=== PATIENT | female | born 1945 | race Caucasian/White ===

== ENCOUNTER 2020-12-22 11:24 | Inpatient (IN) | payer MEDICARE ==
[~2020-12-22] VITALS: Ht 162.6 cm; Wt 44.2 kg
[2020-12-22] MEDS ORDERED: normal saline 1000ml 1,000 ML IV ONE (12:35)
[2020-12-22 12:36] LABS: BASOPHILS # (AUTO) 0.1 X10'3 (0-0.2); BASOPHILS % (AUTO) 0.4 % (0-1); EOSINOPHILS # (AUTO) 0.1 X10'3 (0-0.9); EOSINOPHILS % (AUTO) 0.5 % (0-6); HEMATOCRIT 24.6 % (35.0-45.0); HEMOGLOBIN 7.7 g/dl (12.0-16.0); LYMPHOCYTES % (AUTO) 6.3 % (21-51); MEAN CORPUSCULAR HEMOGLOBIN 24.2 PG (27.0-31.0); MEAN CORPUSCULAR HGB CONC 31.4 g/dL (33.0-36.5); MEAN CORPUSCULAR VOLUME 77.1 FL (78-98); MEAN PLATELET VOLUME 6.3 FL (7.4-10.4); MONOCYTES # (AUTO) 1.8 X10'3 (0-0.9); MONOCYTES % (AUTO) 11.6 % (2-12); NEUTROPHILS # (AUTO) 12.3 X10'3 (1.8-7.7); NEUTROPHILS % (AUTO) 81.2 % (42-75); PLATELET COUNT 589 X10'3 (140-440); RED BLOOD COUNT 3.19 X10'6 (4.20-5.60); RED CELL DISTRIBUTION WIDTH 17.3 % (11.5-14.5); WHITE BLOOD COUNT 15.1 X10'3 (4.5-11.0)
[2020-12-22 12:49] LABS: ALANINE AMINOTRANSFERASE 19 U/L (12-78); ALBUMIN 2.4 G/DL (3.4-5.0); ALBUMIN/GLOBULIN RATIO 0.5 (1.1-1.5); ALKALINE PHOSPHATASE 56 IU/L (46-116); ANION GAP 10 (8-16); ASPARTATE AMINO TRANSFERASE 13 U/L (10-37); BILIRUBIN,TOTAL 0.2 MG/DL (0.1-1.0); BLOOD UREA NITROGEN 14 MG/DL (7-18); CALCIUM 8.6 MG/DL (8.5-10.1); CHLORIDE 99 MMOL/L (99-107); CREATININE 0.61 MG/DL (0.40-0.90); GLUCOSE 122 MG/DL (70-104); LIPASE < 50 U/L (73-393); POTASSIUM 3.8 MMOL/L (3.5-5.1); SODIUM 136 MMOL/L (135-145); TOTAL CARBON DIOXIDE 27.3 MMOL/L (24-32); TOTAL PROTEIN 7.3 G/DL (6.4-8.2); eGFR > 90 ML/MIN
[2020-12-22] MEDS ORDERED: iohexol 300mg/ml 100ml inj. ONE (13:22)
[2020-12-22 14:41] LABS: CLARITY,URINE CLOUDY (Clear); COLOR,URINE YELLOW (Yellow); GLUCOSE, URINE NEGATIVE (Neg); KETONES,URINE NEGATIVE (Neg); LEUKOCYTE ESTERASE ,URINE MODERATE (Neg); NITRITES, URINE POSITIVE (Neg); OCCULT BLOOD,URINE MODERATE (Neg); PROTEIN,URINE NEGATIVE (Neg); UA COLLECTION TYPE CLN CATCH MIDSTREAM; UROBILINOGEN,URINE 0.2 E.U/dL (0.2-1.0)
[2020-12-22 14:50] LABS: WBC,URINE TNTC /HPF (0-4)
[2020-12-22 14:51] LABS: BACTERIA,URINE 4+ /HPF (Neg); MUCUS STRANDS NONE SEEN /LPF (Neg); SQUAMOUS EPITHELIAL CELL,UR FEW /LPF (FEW); WBC CLUMPS,URINE MODERATE /HPF (NEGATIVE)
[2020-12-22] MEDS ORDERED: heparin 10,000 units/1 ML INJ IV ONE ×2 (16:10→16:20)
[2020-12-22] MEDS ORDERED: BALS750C PO (16:43)
[2020-12-22] MEDS ORDERED: METF-1203 PO (16:43)
[2020-12-22] MEDS ORDERED: FINA1TAB17 PO (16:43)
[2020-12-22] MEDS ORDERED: PRE5T PO (16:43)
[2020-12-22] MEDS ORDERED: FERR325T29 PO (16:43)
[2020-12-22] MEDS ORDERED: LACT1CAP65 PO (16:51)
[2020-12-22] MEDS: heparin 25,000 UNIT/250ml bag 250 ML IV SCH (17:01)
[2020-12-22] MEDS ORDERED: diphenhydrAMINE 25mg capsule PO PRN (17:20)
[2020-12-22] MEDS ORDERED: diphenhydrAMINE 50 mg/ml inj IV PRN (17:20)
[2020-12-22] MEDS ORDERED: magnesium hydroxide 30ml (MOM) UD suspension PO PRN (17:20)
[2020-12-22] MEDS ORDERED: ondansetron 4mg rapidly disintigrating tab PO PRN (17:20)
[2020-12-22] MEDS ORDERED: bisacodyl 10mg suppository rectal RC PRN (17:20)
[2020-12-22] MEDS ORDERED: heparin 10,000 units/1 ML INJ IV PRN (17:25)
[2020-12-22] MEDS ORDERED: heparin 25,000 UNIT/250ml bag 250 ML IV SCH (17:25)
[2020-12-22] MEDS ORDERED: pantoprazole 40 MG vial IV ONE (17:25)
[2020-12-22 17:54] LABS: HEMOGLOBIN A1C 7.1 % (4.5-6.2)
[2020-12-22 18:06] LABS: CREATINE KINASE 27 U/L (26-192); MAGNESIUM 2.2 MG/DL (1.5-2.4); PHOSPHORUS 3.1 MG/DL (2.3-4.5)
[2020-12-22] MEDS: docusate sod 100mg capsule PO SCH (20:00)
[2020-12-22] MEDS: dextrose 5%-1/2 normal saline 1,000 ML IV SCH (20:22)
[2020-12-22] MEDS ORDERED: CLINDAMYCIN 300mg/NS 50ml IVPB 50 ML IV SCH (21:50)
[2020-12-22] MEDS ORDERED: clindamycin 300mg/D5W 50mL 50 ML IV SCH (21:54)
[2020-12-23] VITALS: BP 112/49
--- NOTE | 2020-12-23 00:43 | NUR ---
PT IS RESTING COMFORTABLY. EQUAL RISE AND FALL OF CHEST.
[2020-12-23] MEDS: heparin 10,000 units/1 ML INJ IV PRN ×2 (01:44→10:21)
[2020-12-23] MEDS: dextrose 5%-1/2 normal saline 1,000 ML IV SCH ×2 (03:20→13:20)
[2020-12-23 03:27] LABS: BASOPHILS # (AUTO) 0.1 X10'3 (0-0.2); BASOPHILS % (AUTO) 0.7 % (0-1); EOSINOPHILS # (AUTO) 0.1 X10'3 (0-0.9); HEMATOCRIT 22.3 % (35.0-45.0); HEMOGLOBIN 7.2 g/dl (12.0-16.0); LYMPHOCYTES # (AUTO) 1.9 X10'3 (1.1-4.8); LYMPHOCYTES % (AUTO) 13.5 % (21-51); MEAN CORPUSCULAR HGB CONC 32.1 g/dL (33.0-36.5); MEAN CORPUSCULAR VOLUME 77.9 FL (78-98); MEAN PLATELET VOLUME 7.1 FL (7.4-10.4); MONOCYTES # (AUTO) 1.7 X10'3 (0-0.9); MONOCYTES % (AUTO) 12.4 % (2-12); NEUTROPHILS # (AUTO) 9.9 X10'3 (1.8-7.7); NEUTROPHILS % (AUTO) 72.4 % (42-75); PLATELET COUNT 501 X10'3 (140-440); RED BLOOD COUNT 2.86 X10'6 (4.20-5.60); RED CELL DISTRIBUTION WIDTH 17.3 % (11.5-14.5); WHITE BLOOD COUNT 13.7 X10'3 (4.5-11.0)
[2020-12-23 03:43] LABS: ALANINE AMINOTRANSFERASE 16 U/L (12-78); ALBUMIN/GLOBULIN RATIO 0.5 (1.1-1.5); ALKALINE PHOSPHATASE 49 IU/L (46-116); ANION GAP 13 (8-16); ASPARTATE AMINO TRANSFERASE 16 U/L (10-37); BILIRUBIN,TOTAL 0.2 MG/DL (0.1-1.0); BLOOD UREA NITROGEN 10 MG/DL (7-18); BUN/CREATININE RATIO 17.2 (6.6-38.0); CALCIUM 8.1 MG/DL (8.5-10.1); CHLORIDE 101 MMOL/L (99-107); CHOL/HDL RATIO 2.3 (0.00-4.99); CHOLESTEROL 119 MG/DL (0-200); CREATININE 0.58 MG/DL (0.40-0.90); GLUCOSE 114 MG/DL (70-104); HDL CHOLESTEROL 52 MG/DL (35-60); LDL CHOLESTEROL 60 MG/DL (50-100); POTASSIUM 3.6 MMOL/L (3.5-5.1); SODIUM 136 MMOL/L (135-145); TOTAL CARBON DIOXIDE 22.4 MMOL/L (24-32); TOTAL PROTEIN 6.4 G/DL (6.4-8.2); TRIGLYCERIDES 49 MG/DL (20-135); eGFR > 90 ML/MIN
[2020-12-23 06:17] LABS: ANISOCYTOSIS 1+; HYPOCHROMASIA 1+; MICROCYTOSIS 1+; PLATELET ESTIMATE INCREASED; TOTAL CELLS COUNTED 100
[2020-12-23 06:18] LABS: BURR CELLS FEW; POLYCHROMASIA FEW; ROULEAUX 1+; TEAR DROP CELLS FEW
[2020-12-23 06:30] VITALS: BP 107/53
--- NOTE | 2020-12-23 07:00 | NUR ---
Patient in room PCU 3014. I have received report from TANNER Newsome and had the opportunity to ask questions and assume patient care.
[2020-12-23] MEDS: docusate sod 100mg capsule PO SCH ×2 (08:00→20:00)
[2020-12-23] MEDS ORDERED: potassium Cl 40MEQ/1/2NS 520ml 520 ML IV PRN (09:20)
[2020-12-23] MEDS ORDERED: magnesium Cl slow-release 64mg tablet PO PRN (09:20)
[2020-12-23] MEDS ORDERED: potassium Cl 20 mEq SR tablet PO PRN ×2 (09:20)
[2020-12-23] MEDS ORDERED: magnesium 4gm in 100ml NS 100 ML IV PRN (09:20)
[2020-12-23] MEDS: ferrous sulfate 325mg tablet PO SCH (10:11)
[2020-12-23] MEDS: prednisone 10mg tablet PO SCH (10:11)
[2020-12-23] MEDS: ciprofloxacin lact 400MG/200ML 200 ML IV SCH ×2 (10:12→21:51)
[2020-12-23] MEDS: FINASTERIDE 1 MG PO SCH (10:19)
[2020-12-23] MEDS: heparin 25,000 UNIT/250ml bag 250 ML IV SCH ×2 (10:24→13:17)
[2020-12-23] MEDS: metroNIDAZOLE 500mg tablet PO SCH ×3 (10:28→20:46)
[2020-12-23 11:00] VITALS: BP 118/58
[2020-12-23] MEDS ORDERED: iohexol 350MG/ML 100ml bottle IV ONE (12:12)
[2020-12-23 12:24] LABS: OCCULT BLOOD STOOL NEGATIVE (Neg)
[2020-12-23] MEDS: nystatin 500,000 unit/5ML UD oral suspension PO SCH ×2 (13:03→20:46)
--- NOTE | 2020-12-23 14:17 | NUR ---
Nutrition consult re: "gluten free". Pt already on a gluten free diet per dietary. Noted pt with A1c 7.1% with no PMH of DM in EMR though per MD documentation pt with Metformin on home med list. Likely pt with known h/o DM which is well controlled for age. DM education not warranted at this time. Will continue to follow. Addendum: 12/23/20 at [address] Amended: Links added.
[2020-12-23 15:00] VITALS: BP 116/77
[2020-12-23] MEDS ORDERED: metroNIDAZOLE-Flagyl 500mg/NS 100 ML IV SCH (16:00)
--- NOTE | 2020-12-23 16:57 | NUR ---
Nutrition/PN consults re: "severe protein calorie malnutrition needing surgery". Pt denies wt loss or decreased appetite per malnutrition risk screen with RN. Noted TPN ordered in EMR. Pt on a gluten free diet documented with average 75% PO intake of meals though 75-100% PO intake of protein, PN not indicated at this time as pt meeting estimated nutrient needs. 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 okays pt receiving PPN over the weekend as pt with no central/PICC access at this time. agrees for pt to receive ONS and for pt be placed on low fiber diet as long as it does not impact patient's PO intake. Conversation with MD was d/w patient's bedside RN. TC to pharmacy who reports clinical pharmacist is out for the night so PPN can't start until tomorrow, RN notified. D/w RN recommendation to discontinue dextrose with MD approval once PN is initiated. PPN and TPN recommendations below are calculated to meet 100% of patient's minimum estimated protein needs though not estimated energy needs as pt will continue with a PO diet and is eating well thus far. Estimated nutrient needs were calculated using IBW as current documented wt isn't scaled. LBM 12/23, documented with diarrhea. Will continue to follow closely. Recommendations: 1) Continue low fiber/gluten free diet; liberalize to regular diet IF PO intake declines and/or diarrhea improves 2) Ensure High Protein BIDBD 3) Continuous PPN per MD using 2:1 Clinimix-E 4.25/10 with 55 mL/hr goal rate to provide 1320 mL total volume/day, 56 g protein, and 132 g dextrose (1.74 mg/kg/min dext load) 4) Once TPN, continuous TPN per MD using 2:1 Clinimix-E 5/20 with 45 mL/hr goal rate to provide 1080 mL total volume/day, 54 g protein, and 216 g dextrose (2.84 mg/kd/min dext load) 5) No lipids with PN given pt with a PO diet 6) Prealbumin and TG q Saturday/ 7) Daily scaled weights 8) Bowel care per MD; consider antidiarrheal Addendum: 12/23/20 at [address] Amended: Links added.
[2020-12-23] MEDS: lactose-reduced food (Ensure High Protein) 237ml bottle PO SCH (17:53)
[2020-12-23 17:59] LABS: PREALBUMIN 9.6 MG/DL (19-36)
[2020-12-23 18:00] VITALS: BP 109/51
--- NOTE | 2020-12-23 18:10 | NUR ---
Problems reprioritized. Patient report given, questions answered & plan of care reviewed with TANNER Roe.
--- NOTE | 2020-12-23 18:30 | NUR ---
Patient in room PCU 3014A. I have received report from TANNER Penaloza and had the opportunity to ask questions and assume patient care. Introduced myself to patient, patient laying in bed with no signs of distress. Bed lower and locked, call light within reach, and side rails up. Will continue to monitor
[2020-12-23] MEDS: K and/or MAG REPLACEMENT MC SCH (18:52)
[2020-12-23] MEDS ORDERED: lactobacillus rhamnosus 10,000 MMU CELLS/CAPSULE PO SCH (20:00)
--- NOTE | 2020-12-23 21:21 | NUR ---
notified pharmacy that cipro was not available in either omni, in the bins or in either refrigerator.
[2020-12-23 22:00] VITALS: BP 104/52
[2020-12-24 02:00] VITALS: BP 107/54
[2020-12-24] MEDS: heparin 10,000 units/1 ML INJ IV PRN (02:23)
[2020-12-24] MEDS: dextrose 5%-1/2 normal saline 1,000 ML IV SCH ×3 (02:54→19:20)
--- NOTE | 2020-12-24 03:36 | NUR ---
reviewed and edited SRN assessment
[2020-12-24 06:00] VITALS: BP 127/64
--- NOTE | 2020-12-24 06:17 | NUR ---
Problems reprioritized. Patient report given, questions answered & plan of care reviewed with TANNER Corey.
--- NOTE | 2020-12-24 06:18 | NUR ---
Patient in room PCU 3014. I have received report from TANNER Roe and had the opportunity to ask questions and assume patient care.
[2020-12-24] MEDS: heparin 25,000 UNIT/250ml bag 250 ML IV SCH (07:00)
[2020-12-24] MEDS: lactose-reduced food (Ensure High Protein) 237ml bottle PO SCH ×2 (07:30→10:41)
[2020-12-24] MEDS: K and/or MAG REPLACEMENT MC SCH ×2 (08:00→22:04)
[2020-12-24] MEDS: docusate sod 100mg capsule PO SCH ×2 (08:00→20:00)
[2020-12-24] MEDS: FINASTERIDE 1 MG PO SCH (08:00)
[2020-12-24] MEDS: ciprofloxacin lact 400MG/200ML 200 ML IV SCH ×2 (08:43→20:17)
[2020-12-24] MEDS: nystatin 500,000 unit/5ML UD oral suspension PO SCH ×3 (08:43→20:19)
[2020-12-24] MEDS: ferrous sulfate 325mg tablet PO SCH (08:45)
[2020-12-24] MEDS: metroNIDAZOLE 500mg tablet PO SCH ×3 (08:46→20:18)
[2020-12-24] MEDS: prednisone 10mg tablet PO SCH (08:46)
--- NOTE | 2020-12-24 09:23 | NUR ---
F/u for PN consult: Recommendations have been d/w clinical pharmacist, see below. Recommendations: 1) Continue low fiber/gluten free diet; liberalize to regular diet IF PO intake declines and/or diarrhea improves 2) Ensure High Protein BIDBD 3) Continuous PPN per MD using 2:1 Clinimix-E 4.25/10 with 55 mL/hr goal rate to provide 1320 mL total volume/day, 56 g protein, and 132 g dextrose (1.74 mg/kg/min dext load) 4) Once pt gets a PICC/Central line and transitions to TPN, continuous TPN per MD using 2:1 Clinimix-E 5/20 with 45 mL/hr goal rate to provide 1080 mL total volume/day, 54 g protein, and 216 g dextrose (2.84 mg/kd/min dext load) 5) No lipids with PN given pt with a PO diet 6) Prealbumin and TG q Saturday/ 7) Daily scaled weights 8) Bowel care per MD; consider antidiarrheal Addendum: 12/24/20 at [address] Amended: Links added.
[2020-12-24 09:27] LABS: BASOPHILS # (AUTO) 0.1 X10'3 (0-0.2); BASOPHILS % (AUTO) 0.7 % (0-1); EOSINOPHILS # (AUTO) 0.2 X10'3 (0-0.9); EOSINOPHILS % (AUTO) 1.4 % (0-6); HEMOGLOBIN 7.4 g/dl (12.0-16.0); LYMPHOCYTES # (AUTO) 1.8 X10'3 (1.1-4.8); LYMPHOCYTES % (AUTO) 15.7 % (21-51); MEAN CORPUSCULAR HEMOGLOBIN 24.8 PG (27.0-31.0); MEAN CORPUSCULAR HGB CONC 32.1 g/dL (33.0-36.5); MEAN CORPUSCULAR VOLUME 77.2 FL (78-98); MEAN PLATELET VOLUME 6.7 FL (7.4-10.4); MONOCYTES # (AUTO) 1.2 X10'3 (0-0.9); MONOCYTES % (AUTO) 10.7 % (2-12); NEUTROPHILS # (AUTO) 8.3 X10'3 (1.8-7.7); NEUTROPHILS % (AUTO) 71.5 % (42-75); PLATELET COUNT 531 X10'3 (140-440); RED BLOOD COUNT 2.98 X10'6 (4.20-5.60); RED CELL DISTRIBUTION WIDTH 17.1 % (11.5-14.5); WHITE BLOOD COUNT 11.6 X10'3 (4.5-11.0)
[2020-12-24 10:01] LABS: ASPARTATE AMINO TRANSFERASE 14 U/L (10-37); BILIRUBIN,TOTAL 0.1 MG/DL (0.1-1.0); BLOOD UREA NITROGEN 9 MG/DL (7-18); BUN/CREATININE RATIO 13.4 (6.6-38.0); CHLORIDE 103 MMOL/L (99-107); CREATININE 0.67 MG/DL (0.40-0.90); GLUCOSE 183 MG/DL (70-104); PHOSPHORUS 2.8 MG/DL (2.3-4.5); PLATELET ESTIMATE INCREASED; POTASSIUM 3.4 MMOL/L (3.5-5.1); TOTAL CELLS COUNTED 100; eGFR 86 ML/MIN
[2020-12-24 10:02] LABS: ANISOCYTOSIS 1+; MICROCYTOSIS 1+; POIKILOCYTOSIS FEW; POLYCHROMASIA FEW
[2020-12-24 10:03] LABS: ALANINE AMINOTRANSFERASE 17 U/L (12-78); ALBUMIN 2.1 G/DL (3.4-5.0); ALBUMIN/GLOBULIN RATIO 0.4 (1.1-1.5); ALKALINE PHOSPHATASE 50 IU/L (46-116); ANION GAP 11 (8-16); CALCIUM 8.1 MG/DL (8.5-10.1); MAGNESIUM 2.3 MG/DL (1.5-2.4); SODIUM 138 MMOL/L (135-145); TOTAL CARBON DIOXIDE 24.1 MMOL/L (24-32); TOTAL PROTEIN 6.8 G/DL (6.4-8.2)
[2020-12-24 11:00] VITALS: BP 130/65
[2020-12-24] MEDS ORDERED: magnesium Cl slow-release 64mg tablet PO PRN (11:15)
[2020-12-24] MEDS ORDERED: magnesium 4gm in 100ml NS 100 ML IV PRN (11:15)
[2020-12-24] MEDS ORDERED: magnesium 2GM in 50ml NS 50 ML IV PRN (11:15)
[2020-12-24] MEDS ORDERED: Dextrose 10%-water IV solution 1,000 ML IV PRN (11:15)
[2020-12-24] MEDS: ondansetron/PF 4mg/2ml inj IV PRN (12:53)
[2020-12-24] MEDS ORDERED: iron dextran complex inj. 25 MG in normal saline 50ml IV soln 49.5 ML IV ONE (14:45)
[2020-12-24 15:00] VITALS: BP 118/67
[2020-12-24 15:09] LABS: ALANINE AMINOTRANSFERASE 15 U/L (12-78); ALBUMIN 1.9 G/DL (3.4-5.0); ALBUMIN/GLOBULIN RATIO 0.4 (1.1-1.5); ALKALINE PHOSPHATASE 49 IU/L (46-116); ANION GAP 10 (8-16); ASPARTATE AMINO TRANSFERASE 13 U/L (10-37); BILIRUBIN,TOTAL 0.1 MG/DL (0.1-1.0); BLOOD UREA NITROGEN 9 MG/DL (7-18); BUN/CREATININE RATIO 13.2 (6.6-38.0); CHLORIDE 102 MMOL/L (99-107); CREATININE 0.68 MG/DL (0.40-0.90); GLUCOSE 180 MG/DL (70-104); MAGNESIUM 2.1 MG/DL (1.5-2.4); PHOSPHORUS 2.7 MG/DL (2.3-4.5); POTASSIUM 4.2 MMOL/L (3.5-5.1); PREALBUMIN 9.8 MG/DL (19-36); SODIUM 136 MMOL/L (135-145); TOTAL CARBON DIOXIDE 24.3 MMOL/L (24-32); TOTAL PROTEIN 6.3 G/DL (6.4-8.2); TRIGLYCERIDES 23 MG/DL (20-135); eGFR 84 ML/MIN
[2020-12-24] MEDS ORDERED: polyethylene glycol 3350 17gm powd pack PO ONE (15:15)
[2020-12-24 15:42] LABS: % IRON SATURATION 6 % (11-46); IRON 13 UG/DL (49-151); TOTAL IRON BINDING CAPACITY 213 UG/DL (259-388)
[2020-12-24 18:00] VITALS: BP 126/68
[2020-12-24] MEDS ORDERED: IRON DEXTRAN COMPLEX IV ONE (18:30)
[2020-12-24] MEDS ORDERED: NORMAL SALINE IV ONE (18:30)
[2020-12-24] MEDS: JUVEN Smoothie Arginine/Glut./Ca2+Bmb (Juven 19.3pkt) 240ml cup PO SCH (18:43)
--- NOTE | 2020-12-24 19:33 | NUR ---
Dr. Vaca says ok to hold IV nutrition until FE infusion is complete in 5 hours. pt has 2 IVs which are running noncompatible infusions
[2020-12-24] MEDS ORDERED: ZINC/COPPER/MANGANESE/SELENIUM 1 ML, chromic chloride inj. 10 MCG in AA 4.25%/CALCIUM/L... IV SCH (20:00)
[2020-12-24] MEDS: OXANDROLONE PO SCH (20:00)
--- NOTE | 2020-12-24 20:05 | NUR ---
spoke with pharmacy. kaitlin mendez to run in same line as heparin but the cipro is not compatible so they said it was okay to pause the Fe infusion for 1 hour to run the cipro. Addendum: 12/24/20 at 2211 by Jada Stanley RN Giorgi SNIDER still going to pause Fe to run Cipro
[2020-12-24 22:00] VITALS: BP 114/62
[2020-12-24] MEDS ORDERED: sodium ferric gluc complex inj 125 MG in normal saline 100ml IV soln 90 ML IV SCH (22:25)
[2020-12-25] MEDS: ondansetron/PF 4mg/2ml inj IV PRN (00:40)
[2020-12-25] MEDS: heparin 25,000 UNIT/250ml bag 250 ML IV SCH ×2 (00:47→15:18)
[2020-12-25 02:00] VITALS: BP 120/65
[2020-12-25] MEDS: heparin 10,000 units/1 ML INJ IV PRN (05:29)
--- NOTE | 2020-12-25 06:30 | NUR ---
Patient in room PCU 3014. I have received report from Vickie HART and had the opportunity to ask questions and assume patient care.
[2020-12-25 07:11] LABS: BASOPHILS # (AUTO) 0.1 X10'3 (0-0.2); BASOPHILS % (AUTO) 0.9 % (0-1); EOSINOPHILS # (AUTO) 0.1 X10'3 (0-0.9); EOSINOPHILS % (AUTO) 0.7 % (0-6); LYMPHOCYTES # (AUTO) 1.8 X10'3 (1.1-4.8); LYMPHOCYTES % (AUTO) 13.6 % (21-51); MEAN CORPUSCULAR HEMOGLOBIN 24.8 PG (27.0-31.0); MEAN CORPUSCULAR HGB CONC 32.4 g/dL (33.0-36.5); MEAN CORPUSCULAR VOLUME 76.6 FL (78-98); MEAN PLATELET VOLUME 6.8 FL (7.4-10.4); MONOCYTES # (AUTO) 1.7 X10'3 (0-0.9); MONOCYTES % (AUTO) 12.8 % (2-12); NEUTROPHILS # (AUTO) 9.5 X10'3 (1.8-7.7); PLATELET COUNT 546 X10'3 (140-440); RED BLOOD COUNT 2.77 X10'6 (4.20-5.60); RED CELL DISTRIBUTION WIDTH 17.3 % (11.5-14.5); WHITE BLOOD COUNT 13.2 X10'3 (4.5-11.0)
[2020-12-25 07:20] LABS: ALBUMIN/GLOBULIN RATIO 0.5 (1.1-1.5); ALKALINE PHOSPHATASE 46 IU/L (46-116); ANION GAP 10 (8-16); BILIRUBIN,TOTAL 0.1 MG/DL (0.1-1.0); BLOOD UREA NITROGEN 9 MG/DL (7-18); BUN/CREATININE RATIO 14.8 (6.6-38.0); CALCIUM 8.4 MG/DL (8.5-10.1); CHLORIDE 104 MMOL/L (99-107); CREATININE 0.61 MG/DL (0.40-0.90); GLUCOSE 140 MG/DL (70-104); SODIUM 138 MMOL/L (135-145); TOTAL CARBON DIOXIDE 24.1 MMOL/L (24-32); TOTAL PROTEIN 6.3 G/DL (6.4-8.2); eGFR > 90 ML/MIN
[2020-12-25 07:23] LABS: PHOSPHORUS 2.6 MG/DL (2.3-4.5); POTASSIUM 3.8 MMOL/L (3.5-5.1)
[2020-12-25 07:26] LABS: HEMATOCRIT 21.2 % (35.0-45.0); HEMOGLOBIN 6.9 g/dl (12.0-16.0)
--- NOTE | 2020-12-25 07:26 | NUR ---
CRITICAL LAB VALUE TAKEN FROM LAB, REPORTED TO PRIMARY RN.
[2020-12-25] MEDS: lactose-reduced food (Ensure High Protein) 237ml bottle PO SCH ×2 (07:30→17:46)
[2020-12-25] MEDS: docusate sod 100mg capsule PO SCH ×2 (08:00→20:00)
[2020-12-25] MEDS: JUVEN Smoothie Arginine/Glut./Ca2+Bmb (Juven 19.3pkt) 240ml cup PO SCH ×3 (08:00→17:46)
[2020-12-25] MEDS: K and/or MAG REPLACEMENT MC SCH ×2 (08:00→20:00)
[2020-12-25] MEDS: OXANDROLONE PO SCH ×2 (08:00→20:00)
[2020-12-25 08:01] VITALS: BP 122/66
--- NOTE | 2020-12-25 08:01 | NUR ---
Paged Dr. Rubio regarding H&H PAGER ID: [phone] MESSAGE: [id number] Chente Sue. HGB 6.9, HCT 21.2. U Crystal
[2020-12-25 08:11] LABS: ALANINE AMINOTRANSFERASE 15 U/L (12-78)
[2020-12-25 08:23] LABS: ASPARTATE AMINO TRANSFERASE 14 U/L (10-37)
[2020-12-25] MEDS: ciprofloxacin lact 400MG/200ML 200 ML IV SCH (09:39)
[2020-12-25] MEDS: ferrous sulfate 325mg tablet PO SCH (09:40)
[2020-12-25] MEDS: metroNIDAZOLE 500mg tablet PO SCH (09:41)
[2020-12-25] MEDS: multivitamins, therapeutics tablet PO SCH (09:41)
[2020-12-25] MEDS: prednisone 10mg tablet PO SCH (09:41)
[2020-12-25] MEDS: FINASTERIDE 1 MG PO SCH (09:42)
[2020-12-25] MEDS: nystatin 500,000 unit/5ML UD oral suspension PO SCH ×3 (09:55→21:52)
[2020-12-25 12:01] VITALS: BP 113/60
--- NOTE | 2020-12-25 12:18 | NUR ---
Paged Dr. Rubio regarding if we are giving blood transfusion today. PAGER ID: [phone] MESSAGE: [phone] Chente Sue. Are we giving blood to this patient today? U Crystal
--- NOTE | 2020-12-25 12:27 | NUR ---
No blood transfusion today per Dr. Rubio.
[2020-12-25] MEDS ORDERED: dextrose ORAL solution 15 GM/59 ML bottle PO PRN ×2 (15:25)
[2020-12-25] MEDS ORDERED: dextrose 50%-water 50ml dispensing syringe IV PRN ×2 (15:25)
[2020-12-25] MEDS ORDERED: glucagon, human recombinant 1mg kit SUBCUT PRN (15:25)
[2020-12-25] MEDS: insulin regular, human U-100 3ml vial - multi-dose SQ SCH (15:52)
[2020-12-25] MEDS ORDERED: cefepime 1GM/NS ADD-VANTAGE 100 ML IV SCH (16:00)
[2020-12-25] MEDS: cefepime 1GM in D5W 50mL 50 ML IV SCH (16:26)
[2020-12-25 16:44] VITALS: BP 120/60
[2020-12-25 18:00] VITALS: BP 115/66
--- NOTE | 2020-12-25 18:30 | NUR ---
Patient in room PCU 3014. I have received report from Vickie HART and had the opportunity to ask questions and assume patient care.
--- NOTE | 2020-12-25 18:32 | NUR ---
Problems reprioritized. Patient report given, questions answered & plan of care reviewed with Monique HART. Patient stable a transfer of care.
--- NOTE | 2020-12-25 18:35 | NUR ---
Beth HARTdental front office assistant: I have reviewed and agree with all interventions, assessments performed and documented by Beth HART.
--- NOTE | 2020-12-25 18:36 | NUR ---
[place] Medication Administration: For this medication-pass time frame, all medication were reviewed, dispensed, administered and documented per hospital policy by Beth HART.
[2020-12-25 22:00] VITALS: BP 114/61
[2020-12-25] MEDS: insulin glargine (Lantus) pen - multi-dose SQ SCH (22:49)
[2020-12-26] MEDS: cefepime 1GM in D5W 50mL 50 ML IV SCH ×3 (00:41→15:32)
[2020-12-26 02:00] VITALS: BP 118/65
--- NOTE | 2020-12-26 06:23 | NUR ---
Problems reprioritized. Patient report given, questions answered & plan of care reviewed with Brigido HART.
[2020-12-26 07:18] LABS: BASOPHILS # (AUTO) 0.1 X10'3 (0-0.2); BASOPHILS % (AUTO) 0.9 % (0-1); EOSINOPHILS # (AUTO) 0.3 X10'3 (0-0.9); EOSINOPHILS % (AUTO) 1.9 % (0-6); HEMATOCRIT 23.8 % (35.0-45.0); HEMOGLOBIN 7.5 g/dl (12.0-16.0); LYMPHOCYTES # (AUTO) 2.6 X10'3 (1.1-4.8); LYMPHOCYTES % (AUTO) 18.7 % (21-51); MEAN CORPUSCULAR HEMOGLOBIN 24.6 PG (27.0-31.0); MEAN CORPUSCULAR HGB CONC 31.3 g/dL (33.0-36.5); MEAN CORPUSCULAR VOLUME 78.5 FL (78-98); MEAN PLATELET VOLUME 7.2 FL (7.4-10.4); MONOCYTES # (AUTO) 1.8 X10'3 (0-0.9); MONOCYTES % (AUTO) 13.3 % (2-12); NEUTROPHILS # (AUTO) 8.9 X10'3 (1.8-7.7); NEUTROPHILS % (AUTO) 65.2 % (42-75); PLATELET COUNT 558 X10'3 (140-440); RED BLOOD COUNT 3.04 X10'6 (4.20-5.60); RED CELL DISTRIBUTION WIDTH 17.2 % (11.5-14.5); WHITE BLOOD COUNT 13.7 X10'3 (4.5-11.0)
[2020-12-26] MEDS: multivitamins, therapeutics tablet PO SCH (07:19)
[2020-12-26] MEDS: prednisone 10mg tablet PO SCH (07:19)
[2020-12-26] MEDS: morphine 2 MG/ML inj. syringe IV PRN (07:19)
[2020-12-26] MEDS: ferrous sulfate 325mg tablet PO SCH (07:21)
[2020-12-26] MEDS: nystatin 500,000 unit/5ML UD oral suspension PO SCH ×3 (07:22→19:55)
[2020-12-26] MEDS: lactose-reduced food (Ensure High Protein) 237ml bottle PO SCH ×2 (07:30→17:30)
[2020-12-26] MEDS: JUVEN Smoothie Arginine/Glut./Ca2+Bmb (Juven 19.3pkt) 240ml cup PO SCH ×3 (08:00→18:52)
[2020-12-26] MEDS: OXANDROLONE PO SCH ×2 (08:00→20:00)
[2020-12-26] MEDS: docusate sod 100mg capsule PO SCH ×2 (08:00→19:58)
[2020-12-26] MEDS: K and/or MAG REPLACEMENT MC SCH ×2 (08:00→20:00)
[2020-12-26 08:01] LABS: ALANINE AMINOTRANSFERASE 17 U/L (12-78); ALBUMIN 2.1 G/DL (3.4-5.0); ALBUMIN/GLOBULIN RATIO 0.5 (1.1-1.5); ALKALINE PHOSPHATASE 51 IU/L (46-116); ANION GAP 9 (8-16); ASPARTATE AMINO TRANSFERASE 19 U/L (10-37); BILIRUBIN,TOTAL 0.1 MG/DL (0.1-1.0); BLOOD UREA NITROGEN 19 MG/DL (7-18); BUN/CREATININE RATIO 31.1 (6.6-38.0); CALCIUM 9.3 MG/DL (8.5-10.1); CHLORIDE 106 MMOL/L (99-107); CREATININE 0.61 MG/DL (0.40-0.90); GLUCOSE 112 MG/DL (70-104); MAGNESIUM 2.3 MG/DL (1.5-2.4); PHOSPHORUS 2.7 MG/DL (2.3-4.5); PREALBUMIN 10.9 MG/DL (19-36); SODIUM 139 MMOL/L (135-145); TOTAL PROTEIN 6.6 G/DL (6.4-8.2); TRIGLYCERIDES 47 MG/DL (20-135); eGFR > 90 ML/MIN
[2020-12-26] MEDS: heparin 25,000 UNIT/250ml bag 250 ML IV SCH (09:17)
[2020-12-26] MEDS: FINASTERIDE 1 MG PO SCH (09:23)
[2020-12-26 10:31] LABS: ANISOCYTOSIS 1+; LARGE PLATELETS FEW; MICROCYTOSIS 1+; PLATELET ESTIMATE INCREASED; POLYCHROMASIA FEW
--- NOTE | 2020-12-26 10:36 | NUR ---
Dr. Rubio was paged regarding . patient name Edel Sue in PCU room 14A. pt own medication in the pharmacy is empty bottle , pt does not have meds at home . pharmacy is asking to discontinue the pt own medication order . MARTA HART [id number]
[2020-12-26 14:24] LABS: PARTIAL THROMBOPLASTIN TIME 57 SECONDS (22-32)
--- NOTE | 2020-12-26 14:32 | NUR ---
F/u 12/26: Pt started on PPN 12/24 and currently at 30ml/hr w/ goal of 55ml/hr. However, PPN not indicated at this time as pt currently meeting nutrient needs through PO intake. Avg intake 60% x 8 meals on low fiber diet and mostly 100% of ONS. Per RN, MD wants PN to continue to run likely until surgery which is scheduled for 01/03, though pt currently does not have PICC line. Sergio TID also ordered per MD though pt not documented w/ wounds. Discussed w/ RN to d/c Sergio if MD agreeable as pt is meeting needs w/ low fiber diet and Ensure High protein and w/o wounds. LBM 12/26 noted to be diarrhea w/ some blood per RN, though pt has ulcerative colitis. No new nutrition intervention implemented at this time, will continue to monitor. Recommendations: 1) Continue low fiber/gluten free diet; liberalize to regular diet IF PO intake declines and/or diarrhea improves 2) Ensure High Protein BIDBD 3) D/c Sergio smoothie TID if MD agreeable 4) Continuous PPN per MD using 2:1 Clinimix-E .26/12 with 55 mL/hr goal rate to provide 1320 mL total volume/day, 56 g protein, and 132 g dextrose (1.74 mg/kg/min dext load) 5) Once pt gets a PICC/Central line and transitions to TPN, continuous TPN per MD using 2:1 Clinimix-E 07/21 with 45 mL/hr goal rate to provide 1080 mL total volume/day, 54 g protein, and 216 g dextrose (2.84 mg/kd/min dext load) 6) No lipids with PN given pt with a PO diet 7) Prealbumin and TG q Saturday/ 8) Daily scaled weights 9) Bowel care per MD; consider antidiarrheal Addendum: 12/26/20 at [address] Amended: Links added.
[2020-12-26] MEDS: insulin regular, human U-100 3ml vial - multi-dose SQ SCH (14:33)
[2020-12-26] MEDS ORDERED: ZINC/COPPER/MANGANESE/SELENIUM 0.5 ML, chromic chloride inj. 5 MCG in AA 4.25%/CALCIUM/... IV SCH (19:00)
[2020-12-26] MEDS: polyethylene glycol 3350 17gm powd pack PO SCH (19:55)
[2020-12-26] MEDS ORDERED: lactobacillus rhamnosus 10,000 MMU CELLS/CAPSULE PO SCH (20:00)
[2020-12-26] MEDS: insulin glargine (Lantus) pen - multi-dose SQ SCH (22:28)
[2020-12-27] MEDS: ondansetron/PF 4mg/2ml inj IV PRN (02:59)
[2020-12-27] MEDS: cefepime 1GM in D5W 50mL 50 ML IV SCH ×3 (03:09→16:00)
--- NOTE | 2020-12-27 05:46 | NUR ---
Unable to obtain PTT at scheduled time at 12/260. my self and three other persons attempted. Lab not available after 0, rescheduled for 12/27 at 0200. Still unable to obtain blood sample for ptt. Charge nurse aware, said to wait for morning labs, lab notified.
[2020-12-27 06:00] VITALS: BP 106/52
[2020-12-27 06:19] LABS: BASOPHILS # (AUTO) 0.1 X10'3 (0-0.2); BASOPHILS % (AUTO) 0.6 % (0-1); EOSINOPHILS # (AUTO) 0.2 X10'3 (0-0.9); EOSINOPHILS % (AUTO) 0.9 % (0-6); HEMATOCRIT 22.1 % (35.0-45.0); HEMOGLOBIN 7.1 g/dl (12.0-16.0); LYMPHOCYTES # (AUTO) 2.5 X10'3 (1.1-4.8); LYMPHOCYTES % (AUTO) 14.8 % (21-51); MEAN CORPUSCULAR HEMOGLOBIN 24.7 PG (27.0-31.0); MEAN CORPUSCULAR HGB CONC 32.1 g/dL (33.0-36.5); MEAN CORPUSCULAR VOLUME 76.9 FL (78-98); MEAN PLATELET VOLUME 6.4 FL (7.4-10.4); MONOCYTES # (AUTO) 2.1 X10'3 (0-0.9); MONOCYTES % (AUTO) 12.4 % (2-12); NEUTROPHILS # (AUTO) 12.2 X10'3 (1.8-7.7); NEUTROPHILS % (AUTO) 71.3 % (42-75); PLATELET COUNT 583 X10'3 (140-440); RED BLOOD COUNT 2.87 X10'6 (4.20-5.60); RED CELL DISTRIBUTION WIDTH 17.9 % (11.5-14.5); WHITE BLOOD COUNT 17.1 X10'3 (4.5-11.0)
--- NOTE | 2020-12-27 06:21 | NUR ---
Problems reprioritized. Patient report given, questions answered & plan of care reviewed with Paul.
[2020-12-27 06:34] LABS: ALANINE AMINOTRANSFERASE 18 U/L (12-78); ALBUMIN 2.1 G/DL (3.4-5.0); ALBUMIN/GLOBULIN RATIO 0.5 (1.1-1.5); ALKALINE PHOSPHATASE 49 IU/L (46-116); ANION GAP 8 (8-16); ASPARTATE AMINO TRANSFERASE 18 U/L (10-37); BILIRUBIN,TOTAL 0.1 MG/DL (0.1-1.0); BLOOD UREA NITROGEN 17 MG/DL (7-18); BUN/CREATININE RATIO 27.9 (6.6-38.0); CALCIUM 8.9 MG/DL (8.5-10.1); CHLORIDE 104 MMOL/L (99-107); CREATININE 0.61 MG/DL (0.40-0.90); GLUCOSE 128 MG/DL (70-104); MAGNESIUM 2.2 MG/DL (1.5-2.4); POTASSIUM 3.8 MMOL/L (3.5-5.1); SODIUM 136 MMOL/L (135-145); TOTAL CARBON DIOXIDE 24.4 MMOL/L (24-32); TOTAL PROTEIN 6.4 G/DL (6.4-8.2); eGFR > 90 ML/MIN
[2020-12-27] MEDS: lactose-reduced food (Ensure High Protein) 237ml bottle PO SCH ×2 (07:30→17:30)
[2020-12-27] MEDS: JUVEN Smoothie Arginine/Glut./Ca2+Bmb (Juven 19.3pkt) 240ml cup PO SCH ×2 (08:00→18:00)
[2020-12-27] MEDS: polyethylene glycol 3350 17gm powd pack PO SCH ×2 (08:24→21:20)
[2020-12-27] MEDS: morphine 2 MG/ML inj. syringe IV PRN ×2 (08:24→11:58)
[2020-12-27] MEDS: multivitamins, therapeutics tablet PO SCH (08:25)
[2020-12-27] MEDS: ferrous sulfate 325mg tablet PO SCH (08:25)
[2020-12-27] MEDS: nystatin 500,000 unit/5ML UD oral suspension PO SCH ×3 (08:25→21:20)
[2020-12-27] MEDS: docusate sod 100mg capsule PO SCH ×2 (08:25→21:20)
[2020-12-27] MEDS: prednisone 10mg tablet PO SCH (08:25)
[2020-12-27] MEDS: FINASTERIDE 1 MG PO SCH (08:34)
[2020-12-27 09:28] LABS: NUCLEATED RED BLOOD CELLS 1 /100WBC (0-0); TOTAL CELLS COUNTED 100
[2020-12-27 09:29] LABS: ANISOCYTOSIS 1+; MICROCYTOSIS 1+; PLATELET ESTIMATE INCREASED
[2020-12-27 09:30] LABS: POLYCHROMASIA FEW; SCHISTOCYTES FEW
[2020-12-27 11:00] VITALS: BP 116/60
[2020-12-27 12:37] LABS: PARTIAL THROMBOPLASTIN TIME 26 SECONDS (22-32)
--- NOTE | 2020-12-27 13:00 | NUR ---
DR GRAY was paged regarding ,. pt name Edel Linette PCU room 14A has picc line inserted, the site is bleeding , i have to stop heparin drip because it is in the same side of the arm with the PICC line . do we need x ray to confirm the placement MARTA [id number] TANNER
[2020-12-27] MEDS: insulin regular, human U-100 3ml vial - multi-dose SQ SCH (13:48)
[2020-12-27] MEDS ORDERED: ZINC/COPPER/MANGANESE/SELENIUM 1 ML, chromic chloride inj. 10 MCG in AA 5%/CALCIUM/LYTE... IV SCH (14:25)
[2020-12-27 18:00] VITALS: BP 130/63
--- NOTE | 2020-12-27 19:37 | NUR ---
Called Dr Vaca concerning pt heparin. Was stopped on day shift at 10:00, due to profuse bleeding from freshly placed PICC on upper left arm, pressure bandage was applied and is currently no loner bleeding, is patent and flushes. Dr Vaca ordered to clean up PICC line site restart heparin at 17ml/hr and restart PPN in PICC.
[2020-12-27] MEDS: OXANDROLONE PO SCH (20:00)
[2020-12-27] MEDS: K and/or MAG REPLACEMENT MC SCH (20:00)
[2020-12-27] MEDS: heparin 25,000 UNIT/250ml bag 250 ML IV SCH (20:33)
[2020-12-27] MEDS: insulin glargine (Lantus) pen - multi-dose SQ SCH (21:19)
[2020-12-27 22:00] VITALS: BP 116/60
[2020-12-28 02:00] VITALS: BP 125/63
[2020-12-28] MEDS: morphine 2 MG/ML inj. syringe IV PRN ×5 (02:49→22:35)
[2020-12-28] MEDS: heparin 25,000 UNIT/250ml bag 250 ML IV SCH ×3 (02:58→22:45)
[2020-12-28 03:20] LABS: MAGNESIUM 2.2 MG/DL (1.5-2.4); PHOSPHORUS 4.5 MG/DL (2.3-4.5)
[2020-12-28] MEDS: heparin 10,000 units/1 ML INJ IV PRN (04:09)
--- NOTE | 2020-12-28 06:22 | NUR ---
Problems reprioritized. Patient report given, questions answered & plan of care reviewed with Cristiano.
[2020-12-28 07:00] VITALS: BP 109/55
--- NOTE | 2020-12-28 07:13 | NUR ---
Patient in room PCU 3014. I have received report from Ella HART and had the opportunity to ask questions and assume patient care. Pt alert to voice, denies pain, no sob. safety measures in place. Heparin at 1900 units; PPN at 45ml/hr. no s/sx acute distress. no s/sx bleeding from PICC line.
[2020-12-28] MEDS: lactose-reduced food (Ensure High Protein) 237ml bottle PO SCH ×2 (07:30→17:51)
[2020-12-28] MEDS: docusate sod 100mg capsule PO SCH ×2 (08:00→20:00)
[2020-12-28] MEDS: polyethylene glycol 3350 17gm powd pack PO SCH ×2 (08:00→20:00)
[2020-12-28] MEDS: K and/or MAG REPLACEMENT MC SCH ×2 (08:00→20:00)
[2020-12-28] MEDS: prednisone 10mg tablet PO SCH (08:51)
[2020-12-28] MEDS: ferrous sulfate 325mg tablet PO SCH (08:51)
[2020-12-28] MEDS: multivitamins, therapeutics tablet PO SCH (08:51)
[2020-12-28] MEDS: nystatin 500,000 unit/5ML UD oral suspension PO SCH ×3 (08:52→22:06)
[2020-12-28] MEDS: FINASTERIDE 1 MG PO SCH (08:58)
[2020-12-28] MEDS: JUVEN Smoothie Arginine/Glut./Ca2+Bmb (Juven 19.3pkt) 240ml cup PO SCH ×3 (08:58→18:29)
[2020-12-28] MEDS: insulin regular, human U-100 3ml vial - multi-dose SQ SCH ×3 (09:15→20:12)
[2020-12-28 11:00] VITALS: BP 123/67
[2020-12-28] MEDS: cefepime 1GM in D5W 50mL 50 ML IV SCH ×3 (11:47→17:47)
[2020-12-28 12:38] LABS: ALANINE AMINOTRANSFERASE 24 U/L (12-78); ALBUMIN 2.2 G/DL (3.4-5.0); ALBUMIN/GLOBULIN RATIO 0.5 (1.1-1.5); ALKALINE PHOSPHATASE 47 IU/L (46-116); ANION GAP 12 (8-16); ASPARTATE AMINO TRANSFERASE 26 U/L (10-37); BILIRUBIN,TOTAL 0.2 MG/DL (0.1-1.0); BLOOD UREA NITROGEN 23 MG/DL (7-18); CALCIUM 8.6 MG/DL (8.5-10.1); CHLORIDE 103 MMOL/L (99-107); CREATININE 0.59 MG/DL (0.40-0.90); GLUCOSE 85 MG/DL (70-104); POTASSIUM 4.4 MMOL/L (3.5-5.1); SODIUM 136 MMOL/L (135-145); TOTAL CARBON DIOXIDE 21.5 MMOL/L (24-32); TOTAL PROTEIN 6.3 G/DL (6.4-8.2); eGFR > 90 ML/MIN
--- NOTE | 2020-12-28 14:40 | NUR ---
Reassessment: Pt received PICC placement 12/27 and was transitioned to TPN, currently running at goal rate of 45 mL/hr which is meeting patient's minimum estimated protein needs. Pt continues eating well on PO diet documented with average 75% PO intake of meals and 80% PO intake of ONS providing roughly 2348 kcal/day and 113 g protein/day. TC to RN with recommendation to discontinue Sergio smoothie TID with MD approval as Sergio contains amino acids specifically for wound/burn healing neither of which pt has at this time. Pt currently exceeding estimated nutrient needs as pt receiving ~3298 kcal/day (201% maximum estimated energy needs) and ~167 g protein/day (235% maximum estimated protein needs) from combined PO intake of meals and ONS with TPN at goal rate. LBM 12/27, receiving routine Colace and per pt request Miralax per MD note. Per RN pt not with watery diarrhea however stools are loose. Noted routine bowel care was held this morning. No further nutrition intervention warranted at this time. Will continue to follow. Recommendations: 1) Continue low fiber/gluten free diet; liberalize to regular diet IF PO intake declines and/or diarrhea improves 2) Ensure High Protein BIDBD 3) Discontinue Sergio smoothie TID if MD agreeable as pt currently with no documented wounds/ramos 4) Continuous TPN per MD using 2:1 Clinimix-E 07/21 with 45 mL/hr goal rate to provide 1080 mL total volume/day, 950 kcal, 54 g protein, and 216 g dextrose (3.07 mg/kg/min dext load) 5) No lipids with PN given pt with a PO diet 6) Prealbumin and TG q Saturday/ 7) Daily scaled weights 8) Bowel care per MD; consider antidiarrheal Addendum: 12/28/20 at [address] Amended: Links added.
[2020-12-28 15:00] VITALS: BP 118/64
--- NOTE | 2020-12-28 18:00 | NUR ---
Received pt in bed AAOx4 heparin infusing at 1900 units and TPN at 55 ml ; Plan of care verbalized to pt. Pt denied any discomfort at this time. Continue to monitor pt for pain.
--- NOTE | 2020-12-28 18:29 | NUR ---
Problems reprioritized. Patient report given, questions answered & plan of care reviewed with Ratna HART. Pt sitting up in bed eating dinner. Heparin at 1900u/hr, TPN at 55. no s/sx acute distress
[2020-12-28] MEDS ORDERED: ZINC/COPPER/MANGANESE/SELENIUM 1 ML, chromic chloride inj. 10 MCG in AA 5%/CALCIUM/LYTE... IV SCH (19:00)
[2020-12-28] MEDS ORDERED: lactobacillus rhamnosus 10,000 MMU CELLS/CAPSULE PO SCH (20:00)
[2020-12-28 20:38] VITALS: BP 115/54
[2020-12-28 22:00] VITALS: BP 109/57
[2020-12-28] MEDS: insulin glargine (Lantus) pen - multi-dose SQ SCH (22:17)
[2020-12-29] VITALS (15 sets, daily range): BP systolic 108–143; BP diastolic 45–90
[2020-12-29] MEDS: cefepime 1GM in D5W 50mL 50 ML IV SCH ×4 (00:58→23:53)
[2020-12-29] MEDS: morphine 2 MG/ML inj. syringe IV PRN ×5 (02:50→20:05)
--- NOTE | 2020-12-29 03:27 | NUR ---
Heparin drips and TPN infusing well with no adversed effects. pt being medicated for abdominal pain as needed. Fall precaution and safety measure in place.
--- NOTE | 2020-12-29 05:55 | NUR ---
3 AM PTT resulted 45, no change made to rate. Heparing and TPN infusing well with no complaints. Pt had a good night sleep.
--- NOTE | 2020-12-29 06:49 | NUR ---
Patient in room PCU 3014. I have received report from Ratna HART and had the opportunity to ask questions and assume patient care.Pt sitting up in bed, alert to voice, verbalizing needs, endorsing mild pain to abd per baseline. pt requesting and given new toothbrush, mouth wash and thin hygiene wipes. Safety education reinforced. safety measures in place. no s/sx acute distress. Heparin at 1900/ TPN at 55.
[2020-12-29 07:42] LABS: PREALBUMIN 12.2 MG/DL (19-36)
[2020-12-29] MEDS: prednisone 10mg tablet PO SCH (07:53)
[2020-12-29] MEDS: ferrous sulfate 325mg tablet PO SCH (07:53)
[2020-12-29] MEDS: nystatin 500,000 unit/5ML UD oral suspension PO SCH ×3 (07:53→20:04)
[2020-12-29] MEDS: multivitamins, therapeutics tablet PO SCH (07:53)
[2020-12-29] MEDS: FINASTERIDE 1 MG PO SCH (07:54)
[2020-12-29] MEDS: JUVEN Smoothie Arginine/Glut./Ca2+Bmb (Juven 19.3pkt) 240ml cup PO SCH ×3 (07:54→17:40)
[2020-12-29] MEDS: lactose-reduced food (Ensure High Protein) 237ml bottle PO SCH ×2 (07:55→17:40)
[2020-12-29] MEDS: polyethylene glycol 3350 17gm powd pack PO SCH ×2 (08:00→19:30)
[2020-12-29] MEDS: K and/or MAG REPLACEMENT MC SCH ×2 (08:00→19:30)
[2020-12-29] MEDS: docusate sod 100mg capsule PO SCH ×2 (08:00→19:30)
[2020-12-29] MEDS: insulin regular, human U-100 3ml vial - multi-dose SQ SCH ×2 (09:40→19:57)
[2020-12-29 12:37] LABS: BASOPHILS # (AUTO) 0.1 X10'3 (0-0.2); BASOPHILS % (AUTO) 0.6 % (0-1); EOSINOPHILS # (AUTO) 0.1 X10'3 (0-0.9); EOSINOPHILS % (AUTO) 0.7 % (0-6); LYMPHOCYTES # (AUTO) 0.9 X10'3 (1.1-4.8); LYMPHOCYTES % (AUTO) 5.2 % (21-51); MEAN CORPUSCULAR HGB CONC 31.8 g/dL (33.0-36.5); MEAN CORPUSCULAR VOLUME 78.8 FL (78-98); MEAN PLATELET VOLUME 6.2 FL (7.4-10.4); MONOCYTES # (AUTO) 2.1 X10'3 (0-0.9); MONOCYTES % (AUTO) 11.7 % (2-12); NEUTROPHILS # (AUTO) 14.6 X10'3 (1.8-7.7); NEUTROPHILS % (AUTO) 81.8 % (42-75); PLATELET COUNT 438 X10'3 (140-440); RED BLOOD COUNT 2.69 X10'6 (4.20-5.60); RED CELL DISTRIBUTION WIDTH 18.4 % (11.5-14.5); WHITE BLOOD COUNT 17.9 X10'3 (4.5-11.0)
[2020-12-29 12:50] LABS: HEMATOCRIT 21.2 % (35.0-45.0); HEMOGLOBIN 6.7 g/dl (12.0-16.0)
[2020-12-29 12:52] LABS: ALANINE AMINOTRANSFERASE 26 U/L (12-78); ALBUMIN/GLOBULIN RATIO 0.5 (1.1-1.5); ALKALINE PHOSPHATASE 56 IU/L (46-116); ANION GAP 5 (8-16); ASPARTATE AMINO TRANSFERASE 22 U/L (10-37); BILIRUBIN,TOTAL 0.2 MG/DL (0.1-1.0); BLOOD UREA NITROGEN 21 MG/DL (7-18); BUN/CREATININE RATIO 31.3 (6.6-38.0); CALCIUM 8.6 MG/DL (8.5-10.1); CHLORIDE 101 MMOL/L (99-107); CREATININE 0.67 MG/DL (0.40-0.90); GLUCOSE 115 MG/DL (70-104); POTASSIUM 4.4 MMOL/L (3.5-5.1); SODIUM 133 MMOL/L (135-145); TOTAL CARBON DIOXIDE 26.8 MMOL/L (24-32); TOTAL PROTEIN 6.4 G/DL (6.4-8.2); eGFR 86 ML/MIN
--- NOTE | 2020-12-29 13:00 | NUR ---
Dr. Thurman paged re: critical H&H. Dr. thurman called immediately back. new orders to hold heparin, type and cross, two units LRBC. pt notified and in agreemnt with POC
[2020-12-29 13:13] LABS: ANISOCYTOSIS 2+; MICROCYTOSIS 1+; PLATELET ESTIMATE NORMAL; POLYCHROMASIA FEW; TOTAL CELLS COUNTED 100
[2020-12-29 14:39] LABS: PHOSPHORUS 3.6 MG/DL (2.3-4.5)
--- NOTE | 2020-12-29 18:25 | NUR ---
Patient in room PCU 3014A. I have received report from TANNER Palafox and had the opportunity to ask questions and assume patient care.
--- NOTE | 2020-12-29 18:57 | NUR ---
Problems reprioritized. Patient report given, questions answered & plan of care reviewed with Tammie HART.
[2020-12-29] MEDS: ZINC/COPPER/MANGANESE/SELENIUM 1 ML, chromic chloride inj. 10 MCG in AA 5%/CALCIUM/LYTE... IV SCH (21:50)
[2020-12-29] MEDS: insulin glargine (Lantus) pen - multi-dose SQ SCH (22:03)
[2020-12-29] MEDS ORDERED: metroNIDAZOLE 500mg tablet PO ONE (22:10)
[2020-12-29] MEDS: heparin 25,000 UNIT/250ml bag 250 ML IV SCH (23:10)
[2020-12-30] VITALS (15 sets, daily range): BP systolic 97–128; BP diastolic 41–72
[2020-12-30] MEDS: morphine 2 MG/ML inj. syringe IV PRN ×5 (01:08→23:41)
[2020-12-30 04:54] LABS: EOSINOPHILS # (AUTO) 0.1 X10'3 (0-0.9); HEMOGLOBIN 9.6 g/dl (12.0-16.0); NEUTROPHILS # (AUTO) 8.8 X10'3 (1.8-7.7); WHITE BLOOD COUNT 12.3 X10'3 (4.5-11.0)
[2020-12-30 04:55] LABS: BASOPHILS % (AUTO) 0.3 % (0-1); EOSINOPHILS % (AUTO) 0.9 % (0-6); HEMATOCRIT 28.5 % (35.0-45.0); LYMPHOCYTES # (AUTO) 1.3 X10'3 (1.1-4.8); LYMPHOCYTES % (AUTO) 10.5 % (21-51); MEAN CORPUSCULAR HGB CONC 33.6 g/dL (33.0-36.5); MEAN CORPUSCULAR VOLUME 80.3 FL (78-98); MEAN PLATELET VOLUME 6.3 FL (7.4-10.4); MONOCYTES # (AUTO) 2.1 X10'3 (0-0.9); MONOCYTES % (AUTO) 16.7 % (2-12); NEUTROPHILS % (AUTO) 71.6 % (42-75); PLATELET COUNT 365 X10'3 (140-440); RED BLOOD COUNT 3.55 X10'6 (4.20-5.60); RED CELL DISTRIBUTION WIDTH 19.6 % (11.5-14.5)
[2020-12-30 05:04] LABS: ALANINE AMINOTRANSFERASE 26 U/L (12-78); ALBUMIN 2.1 G/DL (3.4-5.0); ALBUMIN/GLOBULIN RATIO 0.5 (1.1-1.5); ALKALINE PHOSPHATASE 55 IU/L (46-116); ANION GAP 5 (8-16); ASPARTATE AMINO TRANSFERASE 22 U/L (10-37); BILIRUBIN,TOTAL 0.3 MG/DL (0.1-1.0); BLOOD UREA NITROGEN 23 MG/DL (7-18); BUN/CREATININE RATIO 34.8 (6.6-38.0); CALCIUM 8.6 MG/DL (8.5-10.1); CHLORIDE 101 MMOL/L (99-107); CREATININE 0.66 MG/DL (0.40-0.90); GLUCOSE 117 MG/DL (70-104); MAGNESIUM 2.2 MG/DL (1.5-2.4); PHOSPHORUS 3.8 MG/DL (2.3-4.5); POTASSIUM 4.4 MMOL/L (3.5-5.1); PREALBUMIN 12.2 MG/DL (19-36); SODIUM 133 MMOL/L (135-145); TOTAL CARBON DIOXIDE 26.7 MMOL/L (24-32); TOTAL PROTEIN 6.6 G/DL (6.4-8.2); eGFR 87 ML/MIN
--- NOTE | 2020-12-30 06:42 | NUR ---
Problems reprioritized. Patient report given, questions answered & plan of care reviewed with TANNER Palafox.
[2020-12-30 07:01] LABS: PLATELET ESTIMATE NORMAL; TOTAL CELLS COUNTED 100
--- NOTE | 2020-12-30 07:01 | NUR ---
Patient in room PCU 3014. I have received report from Giuseppe HART and had the opportunity to ask questions and assume patient care. Pt alert to voice, semi folwers in bed, TPN @ 55. safety measures in place. no s/sx acute distress
[2020-12-30 07:02] LABS: ANISOCYTOSIS 2+; SCHISTOCYTES FEW
[2020-12-30] MEDS: lactose-reduced food (Ensure High Protein) 237ml bottle PO SCH ×2 (07:30→17:35)
[2020-12-30] MEDS ORDERED: MVI, adult No.4 with vit. K 10 ML in dextrose 5% water 500ml 500 ML IV SCH ×2 (08:00)
[2020-12-30] MEDS: JUVEN Smoothie Arginine/Glut./Ca2+Bmb (Juven 19.3pkt) 240ml cup PO SCH ×3 (08:00→18:19)
[2020-12-30] MEDS: docusate sod 100mg capsule PO SCH ×2 (08:00→20:30)
[2020-12-30] MEDS: K and/or MAG REPLACEMENT MC SCH ×2 (08:00→20:00)
[2020-12-30] MEDS: polyethylene glycol 3350 17gm powd pack PO SCH ×2 (08:00→20:30)
[2020-12-30] MEDS: multivitamins, therapeutics tablet PO SCH (08:20)
[2020-12-30] MEDS: nystatin 500,000 unit/5ML UD oral suspension PO SCH ×3 (08:20→21:10)
[2020-12-30] MEDS: prednisone 10mg tablet PO SCH (08:20)
[2020-12-30] MEDS: ferrous sulfate 325mg tablet PO SCH (08:20)
[2020-12-30] MEDS: metroNIDAZOLE 500mg tablet PO SCH ×2 (08:20→21:10)
[2020-12-30] MEDS: FINASTERIDE 1 MG PO SCH (08:21)
[2020-12-30] MEDS: cefepime 1GM in D5W 50mL 50 ML IV SCH ×2 (08:24→17:34)
[2020-12-30] MEDS ORDERED: iohexol 300 MG/1 ML 50ml polymer ONE (08:46)
[2020-12-30] MEDS ORDERED: LIDOcaine 1%/PF 5ML 10 MG/ML VIAL ONE ×2 (08:46)
[2020-12-30] MEDS ORDERED: midazolam 1 mg/ML 2ml injection ONE (08:58)
[2020-12-30] MEDS ORDERED: heparin 1,000 UNITS/NS 500ml 500 ML ONE (08:58)
[2020-12-30] MEDS ORDERED: fentaNYL/PF 50MCG/1 ML 2ML syringe ONE (08:58)
[2020-12-30] MEDS ORDERED: ondansetron/PF 4mg/2ml inj ONE (09:08)
[2020-12-30] MEDS: insulin regular, human U-100 3ml vial - multi-dose SQ SCH ×2 (15:19→19:44)
--- NOTE | 2020-12-30 16:30 | NUR ---
Ambulation: pt ambulated 400 ft x2 this shift. gait steady
--- NOTE | 2020-12-30 18:18 | NUR ---
Problems reprioritized. Patient report given, questions answered & plan of care reviewed with Lamonte Rn and Ericka RN. pt sitting up in bed working in dinner. TPN at 55. no s/sx acute distress
--- NOTE | 2020-12-30 18:20 | NUR ---
Patient in room PCU 3014. I have received report from TANNER Palafox and had the opportunity to ask questions and assume patient care.
--- NOTE | 2020-12-30 18:43 | NUR ---
Patient in room PCU 3014. I have received report from TANNER Palafox and had the opportunity to ask questions and assume patient care.
--- NOTE | 2020-12-30 18:48 | NUR ---
Patient in room PCU 3014. I have received report from TANNER Palafox and had the opportunity to ask questions and assume patient care.
--- NOTE | 2020-12-30 18:51 | NUR ---
Student Medication Administration: For this medication-pass time frame, all medication were reviewed, dispensed, administered and documented per hospital policy by Jacki WISDOM. Student documentation: I have reviewed and agree with all interventions, assessments performed and documented by Jacki WISDOM.
[2020-12-30] MEDS: ondansetron/PF 4mg/2ml inj IV PRN (19:30)
[2020-12-30] MEDS: ZINC/COPPER/MANGANESE/SELENIUM 1 ML, chromic chloride inj. 10 MCG in AA 5%/CALCIUM/LYTE... IV SCH (21:12)
[2020-12-30] MEDS: insulin glargine (Lantus) pen - multi-dose SQ SCH (23:40)
[2020-12-31] MEDS: heparin 25,000 UNIT/250ml bag 250 ML IV SCH ×2 (00:10→14:50)
[2020-12-31] MEDS: cefepime 1GM in D5W 50mL 50 ML IV SCH ×3 (00:49→16:54)
[2020-12-31 02:00] VITALS: BP 108/49
[2020-12-31] MEDS: morphine 2 MG/ML inj. syringe IV PRN ×4 (04:21→19:54)
--- NOTE | 2020-12-31 05:56 | NUR ---
Spoke with Dr. Busch on 12/30/20. Reviewed lab results. Dr. Busch requested nutrition have 60 ml hr for the TPN that is currently at 45 ml hr. nutrition notified.
[2020-12-31 06:00] VITALS: BP 138/71
--- NOTE | 2020-12-31 06:20 | NUR ---
Problems reprioritized. Patient report given, questions answered & plan of care reviewed with . TANNER Street
--- NOTE | 2020-12-31 06:20 | NUR ---
I agree with TANNER Barnett, documentation, assessments, and report given to TANNER Street
--- NOTE | 2020-12-31 06:53 | NUR ---
Patient in room PCU 3014. I have received report from Lamonte HART and had the opportunity to ask questions and assume patient care.
[2020-12-31 07:18] LABS: BASOPHILS # (AUTO) 0.1 X10'3 (0-0.2); BASOPHILS % (AUTO) 0.7 % (0-1); EOSINOPHILS # (AUTO) 0.1 X10'3 (0-0.9); EOSINOPHILS % (AUTO) 0.9 % (0-6); HEMATOCRIT 29.7 % (35.0-45.0); HEMOGLOBIN 9.8 g/dl (12.0-16.0); LYMPHOCYTES # (AUTO) 1.2 X10'3 (1.1-4.8); LYMPHOCYTES % (AUTO) 10.8 % (21-51); MEAN CORPUSCULAR HEMOGLOBIN 26.8 PG (27.0-31.0); MEAN CORPUSCULAR VOLUME 81.4 FL (78-98); MEAN PLATELET VOLUME 6.3 FL (7.4-10.4); MONOCYTES # (AUTO) 1.7 X10'3 (0-0.9); MONOCYTES % (AUTO) 14.5 % (2-12); NEUTROPHILS # (AUTO) 8.4 X10'3 (1.8-7.7); NEUTROPHILS % (AUTO) 73.1 % (42-75); PLATELET COUNT 350 X10'3 (140-440); RED BLOOD COUNT 3.64 X10'6 (4.20-5.60); RED CELL DISTRIBUTION WIDTH 20.3 % (11.5-14.5); WHITE BLOOD COUNT 11.5 X10'3 (4.5-11.0)
[2020-12-31 07:25] LABS: BILIRUBIN,TOTAL 0.3 MG/DL (0.1-1.0); BLOOD UREA NITROGEN 21 MG/DL (7-18); BUN/CREATININE RATIO 35.6 (6.6-38.0); CHLORIDE 99 MMOL/L (99-107); CREATININE 0.59 MG/DL (0.40-0.90); GLUCOSE 125 MG/DL (70-104); PHOSPHORUS 4.2 MG/DL (2.3-4.5); POTASSIUM 4.2 MMOL/L (3.5-5.1); SODIUM 132 MMOL/L (135-145); eGFR > 90 ML/MIN
[2020-12-31 07:26] LABS: ALANINE AMINOTRANSFERASE 28 U/L (12-78); ALBUMIN 2.1 G/DL (3.4-5.0); ALBUMIN/GLOBULIN RATIO 0.5 (1.1-1.5); ALKALINE PHOSPHATASE 51 IU/L (46-116); ANION GAP 6 (8-16); ASPARTATE AMINO TRANSFERASE 20 U/L (10-37); CALCIUM 8.7 MG/DL (8.5-10.1); MAGNESIUM 2.2 MG/DL (1.5-2.4); TOTAL CARBON DIOXIDE 26.7 MMOL/L (24-32); TOTAL PROTEIN 6.5 G/DL (6.4-8.2)
[2020-12-31] MEDS: lactose-reduced food (Ensure High Protein) 237ml bottle PO SCH ×2 (07:30→17:30)
[2020-12-31] MEDS: docusate sod 100mg capsule PO SCH ×2 (08:00→19:56)
[2020-12-31] MEDS: polyethylene glycol 3350 17gm powd pack PO SCH ×2 (08:00→19:56)
[2020-12-31] MEDS: K and/or MAG REPLACEMENT MC SCH ×2 (08:00→19:42)
[2020-12-31] MEDS: FINASTERIDE 1 MG PO SCH (08:28)
[2020-12-31] MEDS: ferrous sulfate 325mg tablet PO SCH (08:31)
[2020-12-31] MEDS: nystatin 500,000 unit/5ML UD oral suspension PO SCH ×3 (08:31→21:25)
[2020-12-31] MEDS: multivitamins, therapeutics tablet PO SCH (08:32)
[2020-12-31] MEDS: metroNIDAZOLE 500mg tablet PO SCH ×2 (08:32→19:51)
[2020-12-31] MEDS: prednisone 10mg tablet PO SCH (08:32)
[2020-12-31] MEDS: JUVEN Smoothie Arginine/Glut./Ca2+Bmb (Juven 19.3pkt) 240ml cup PO SCH ×3 (08:39→17:30)
[2020-12-31 08:54] LABS: PLATELET ESTIMATE NORMAL; POLYCHROMASIA 1+; ROULEAUX 1+; TOTAL CELLS COUNTED 100
[2020-12-31 08:55] LABS: ANISOCYTOSIS 2+; BURR CELLS 1+
[2020-12-31] MEDS: insulin regular, human U-100 3ml vial - multi-dose SQ SCH ×3 (09:52→23:20)
[2020-12-31] MEDS ORDERED: tPA-cathflo 2 MG/2 ml IV flush IVF ONE (10:05)
[2020-12-31 11:00] VITALS: BP 138/72
--- NOTE | 2020-12-31 11:30 | NUR ---
Nutrition consult: Per consult TPN goal to be 60 mL/hr per MD. GENARO d/w clinical pharmacist. New TPN goal rate will meet 101% of patient's maximum estimated protein needs and 93% minimum estimated energy needs. Pt continues on PO diet with fluctuating PO intake averaging 75% PO intake overall of meals and ONS. Pt continues exceeding estimated nutrient needs with TPN and PO intake combined. Per TC with RN MD does not want to discontinue Sergio smoothies at this time, although Sergio smoothies not appropriate as pt currently does not have any significant wounds or ramos which is the only indication for Sergio. LBM 12/30. Routine bowel care being held d/t diarrhea per EMR. Will continue to follow. Recommendations: 1) Continue low fiber/gluten free diet; liberalize to regular diet IF PO intake declines and/or diarrhea improves 2) Ensure High Protein BIDBD 3) Discontinue Sergio smoothie TID if MD agreeable as pt currently with no documented wounds/ramos 4) Continuous TPN using 2:1 Clinimix-E 07/21 with 60 mL/hr goal rate per MD to provide 1440 mL total volume/day, 1267 kcal, 72 g AA, and 288 g dext (3.66 mg/kg/min dext load) 5) No lipids with PN given pt with a PO diet 6) Prealbumin and TG q Saturday/ 7) Daily scaled weights 8) Bowel care per MD; consider antidiarrheal Addendum: 12/31/20 at [address] Amended: Links added.
--- NOTE | 2020-12-31 13:52 | NUR ---
Paged Dr. Shook regarding heparin PAGER ID: [phone] MESSAGE: [phone] Edel Sue. PTT 26, do you want the heparin bolus ordered when starting the heparin? Or do you want me to just start the heparin? PCWinnie Johnston
[2020-12-31] MEDS ORDERED: heparin 10,000 units/1 ML INJ IV PRN (14:25)
[2020-12-31] MEDS ORDERED: heparin 10,000 units/1 ML INJ IV ONE (14:25)
[2020-12-31] MEDS: heparin 10,000 units/1 ML INJ IV PRN ×2 (14:49→21:21)
[2020-12-31 15:00] VITALS: BP 128/68
--- NOTE | 2020-12-31 18:20 | NUR ---
Problems reprioritized. Patient report given, questions answered & plan of care reviewed with Ana HART. Patient stable at tranfer of care.
--- NOTE | 2020-12-31 18:20 | NUR ---
Patient in room PCU 3014. I have received report from Vickie HART and had the opportunity to ask questions and assume patient care.
[2020-12-31 19:00] VITALS: BP 134/69
[2020-12-31] MEDS: ondansetron/PF 4mg/2ml inj IV PRN (19:48)
[2020-12-31] MEDS: ZINC/COPPER/MANGANESE/SELENIUM 1 ML, chromic chloride inj. 10 MCG in AA 5%/CALCIUM/LYTE... IV SCH (19:55)
[2020-12-31] MEDS: insulin glargine (Lantus) pen - multi-dose SQ SCH (23:08)
[2021-01-01] MEDS: cefepime 1GM in D5W 50mL 50 ML IV SCH ×3 (00:12→16:40)
[2021-01-01] MEDS: morphine 2 MG/ML inj. syringe IV PRN ×5 (00:50→21:31)
[2021-01-01 00:53] VITALS: BP 118/62
[2021-01-01] MEDS: insulin regular, human U-100 3ml vial - multi-dose SQ SCH ×3 (02:22→22:11)
[2021-01-01 04:08] VITALS: BP 113/41
--- NOTE | 2021-01-01 05:06 | NUR ---
0450, called down to lab as ptt/inr not resulted. Informed it was very high and need to be drawn again.
[2021-01-01 05:37] LABS: BASOPHILS # (AUTO) 0.1 X10'3 (0-0.2); BASOPHILS % (AUTO) 0.7 % (0-1); EOSINOPHILS # (AUTO) 0.1 X10'3 (0-0.9); EOSINOPHILS % (AUTO) 0.8 % (0-6); HEMATOCRIT 32.4 % (35.0-45.0); HEMOGLOBIN 10.3 g/dl (12.0-16.0); LYMPHOCYTES % (AUTO) 14.1 % (21-51); MEAN CORPUSCULAR HEMOGLOBIN 26.3 PG (27.0-31.0); MEAN CORPUSCULAR VOLUME 82.3 FL (78-98); MEAN PLATELET VOLUME 6.4 FL (7.4-10.4); MONOCYTES # (AUTO) 2.4 X10'3 (0-0.9); NEUTROPHILS # (AUTO) 9.5 X10'3 (1.8-7.7); NEUTROPHILS % (AUTO) 67.4 % (42-75); PLATELET COUNT 384 X10'3 (140-440); RED BLOOD COUNT 3.93 X10'6 (4.20-5.60); RED CELL DISTRIBUTION WIDTH 21.6 % (11.5-14.5)
[2021-01-01 05:47] LABS: ALANINE AMINOTRANSFERASE 26 U/L (12-78); ALBUMIN 2.1 G/DL (3.4-5.0); ALBUMIN/GLOBULIN RATIO 0.4 (1.1-1.5); ALKALINE PHOSPHATASE 54 IU/L (46-116); ANION GAP 5 (8-16); ASPARTATE AMINO TRANSFERASE 25 U/L (10-37); BILIRUBIN,TOTAL 0.2 MG/DL (0.1-1.0); BLOOD UREA NITROGEN 21 MG/DL (7-18); BUN/CREATININE RATIO 36.8 (6.6-38.0); CALCIUM 9.1 MG/DL (8.5-10.1); CHLORIDE 101 MMOL/L (99-107); CREATININE 0.57 MG/DL (0.40-0.90); GLUCOSE 67 MG/DL (70-104); MAGNESIUM 2.3 MG/DL (1.5-2.4); PHOSPHORUS 4.6 MG/DL (2.3-4.5); SODIUM 133 MMOL/L (135-145); TOTAL CARBON DIOXIDE 26.8 MMOL/L (24-32); TOTAL PROTEIN 7.1 G/DL (6.4-8.2); eGFR > 90 ML/MIN
[2021-01-01 05:48] LABS: POTASSIUM 4.3 MMOL/L (3.5-5.1)
[2021-01-01] MEDS: heparin 10,000 units/1 ML INJ IV PRN ×2 (05:59→22:15)
[2021-01-01] MEDS: heparin 25,000 UNIT/250ml bag 250 ML IV SCH ×2 (06:01→17:00)
--- NOTE | 2021-01-01 06:30 | NUR ---
Problems reprioritized. Patient report given, questions answered & plan of care reviewed with Charis HART traveler. Heparin currently infusing at 1300units.
[2021-01-01 06:56] LABS: ANISOCYTOSIS 3+; BURR CELLS 1+; LARGE PLATELETS FEW; PLATELET ESTIMATE NORMAL; TOTAL CELLS COUNTED 100; TOXIC GRANULATION 1+
[2021-01-01 06:57] LABS: POLYCHROMASIA 1+; ROULEAUX 1+
[2021-01-01] MEDS: JUVEN Smoothie Arginine/Glut./Ca2+Bmb (Juven 19.3pkt) 240ml cup PO SCH ×3 (08:00→18:00)
[2021-01-01] MEDS: polyethylene glycol 3350 17gm powd pack PO SCH ×2 (08:00→20:00)
[2021-01-01] MEDS: docusate sod 100mg capsule PO SCH ×2 (08:00→20:00)
[2021-01-01] MEDS: FINASTERIDE 1 MG PO SCH (08:00)
[2021-01-01] MEDS: metroNIDAZOLE 500mg tablet PO SCH ×2 (08:18→21:57)
[2021-01-01] MEDS: ferrous sulfate 325mg tablet PO SCH (08:18)
[2021-01-01] MEDS: multivitamins, therapeutics tablet PO SCH (08:18)
[2021-01-01] MEDS: nystatin 500,000 unit/5ML UD oral suspension PO SCH ×4 (08:18→21:58)
[2021-01-01] MEDS: prednisone 10mg tablet PO SCH (08:19)
[2021-01-01] MEDS: lactose-reduced food (Ensure High Protein) 237ml bottle PO SCH ×2 (08:23→17:52)
[2021-01-01] MEDS: K and/or MAG REPLACEMENT MC SCH ×2 (09:30→20:00)
[2021-01-01 11:00] VITALS: BP 116/66
--- NOTE | 2021-01-01 13:43 | NUR ---
Pt rested comfortably in room throughout shift. Pt's blood sugars unable to be covered due to assigned patient assignment. Pt heparin gtt currently infusing and PTT obtained and checked and within normal limits. Next PTT ordered for patient for 1729. Prioritized care provided to patient this shift. Addendum: 01/01/21 at 1752 by Diana Stanley RN * NEXT PTT @ 1930
--- NOTE | 2021-01-01 19:07 | NUR ---
Patient in room PCU 3014. I have received report from Rell HART and had the opportunity to ask questions and assume patient care.
[2021-01-01 20:25] VITALS: BP 107/47
[2021-01-01] MEDS: ZINC/COPPER/MANGANESE/SELENIUM 1 ML, chromic chloride inj. 10 MCG in AA 5%/CALCIUM/LYTE... IV SCH (21:53)
[2021-01-01] MEDS: insulin glargine (Lantus) pen - multi-dose SQ SCH (22:02)
[2021-01-02] MEDS: cefepime 1GM in D5W 50mL 50 ML IV SCH ×4 (02:30→23:55)
[2021-01-02] MEDS: morphine 2 MG/ML inj. syringe IV PRN ×6 (02:35→23:56)
--- NOTE | 2021-01-02 04:00 | NUR ---
Patient is receiving TPN as well as full meal trays. Approach for integrating the two different insulin protocols is unclear at this time. Did not administer humalin at 0200 due to this confusion, and will pass the information onto day shift RN
[2021-01-02 06:25] LABS: BASOPHILS # (AUTO) 0.1 X10'3 (0-0.2); EOSINOPHILS # (AUTO) 0.1 X10'3 (0-0.9); HEMOGLOBIN 9.5 g/dl (12.0-16.0); MEAN CORPUSCULAR VOLUME 81.9 FL (78-98); MEAN PLATELET VOLUME 6.7 FL (7.4-10.4)
[2021-01-02 06:27] LABS: BASOPHILS % (AUTO) 0.8 % (0-1); EOSINOPHILS % (AUTO) 1.4 % (0-6); HEMATOCRIT 29.1 % (35.0-45.0); LYMPHOCYTES # (AUTO) 1.7 X10'3 (1.1-4.8); LYMPHOCYTES % (AUTO) 18.9 % (21-51); MEAN CORPUSCULAR HEMOGLOBIN 26.9 PG (27.0-31.0); MEAN CORPUSCULAR HGB CONC 32.8 g/dL (33.0-36.5); MONOCYTES # (AUTO) 1.7 X10'3 (0-0.9); MONOCYTES % (AUTO) 18.9 % (2-12); NEUTROPHILS # (AUTO) 5.6 X10'3 (1.8-7.7); PLATELET COUNT 330 X10'3 (140-440); RED BLOOD COUNT 3.55 X10'6 (4.20-5.60); RED CELL DISTRIBUTION WIDTH 20.9 % (11.5-14.5); WHITE BLOOD COUNT 9.2 X10'3 (4.5-11.0)
--- NOTE | 2021-01-02 06:43 | NUR ---
Problems reprioritized. Patient report given, questions answered & plan of care reviewed with Monique HART.
[2021-01-02 07:00] VITALS: BP 136/60
--- NOTE | 2021-01-02 07:03 | NUR ---
Patient in room PCU 3014. I have received report from Bryce HART and had the opportunity to ask questions and assume patient care.
[2021-01-02] MEDS: ondansetron/PF 4mg/2ml inj IV PRN (07:23)
[2021-01-02] MEDS: lactose-reduced food (Ensure High Protein) 237ml bottle PO SCH ×2 (07:30→18:48)
[2021-01-02 07:40] LABS: ALANINE AMINOTRANSFERASE 24 U/L (12-78); ALBUMIN/GLOBULIN RATIO 0.4 (1.1-1.5); ALKALINE PHOSPHATASE 53 IU/L (46-116); ANION GAP 5 (8-16); ASPARTATE AMINO TRANSFERASE 20 U/L (10-37); BILIRUBIN,TOTAL 0.2 MG/DL (0.1-1.0); BLOOD UREA NITROGEN 25 MG/DL (7-18); BUN/CREATININE RATIO 44.6 (6.6-38.0); CALCIUM 8.8 MG/DL (8.5-10.1); CHLORIDE 102 MMOL/L (99-107); CREATININE 0.56 MG/DL (0.40-0.90); GLUCOSE 138 MG/DL (70-104); MAGNESIUM 2.2 MG/DL (1.5-2.4); PHOSPHORUS 4.4 MG/DL (2.3-4.5); POTASSIUM 4.4 MMOL/L (3.5-5.1); PREALBUMIN 13.4 MG/DL (19-36); SODIUM 135 MMOL/L (135-145); TOTAL CARBON DIOXIDE 28.2 MMOL/L (24-32); TOTAL PROTEIN 6.5 G/DL (6.4-8.2); eGFR > 90 ML/MIN
[2021-01-02 07:45] LABS: TRIGLYCERIDES < 15 MG/DL (20-135)
[2021-01-02] MEDS: K and/or MAG REPLACEMENT MC SCH ×2 (08:00→20:00)
[2021-01-02] MEDS: polyethylene glycol 3350 17gm powd pack PO SCH ×2 (08:00→19:57)
[2021-01-02] MEDS: docusate sod 100mg capsule PO SCH ×2 (08:00→19:57)
[2021-01-02] MEDS: JUVEN Smoothie Arginine/Glut./Ca2+Bmb (Juven 19.3pkt) 240ml cup PO SCH ×3 (08:00→18:48)
[2021-01-02 08:01] LABS: ANISOCYTOSIS 3+; PLATELET ESTIMATE NORMAL; TOTAL CELLS COUNTED 100
[2021-01-02] MEDS: nystatin 500,000 unit/5ML UD oral suspension PO SCH ×3 (09:54→20:50)
[2021-01-02] MEDS: metroNIDAZOLE 500mg tablet PO SCH ×2 (09:54→19:48)
[2021-01-02] MEDS: ferrous sulfate 325mg tablet PO SCH (09:54)
[2021-01-02] MEDS: multivitamins, therapeutics tablet PO SCH (09:54)
[2021-01-02] MEDS: prednisone 10mg tablet PO SCH (09:54)
[2021-01-02] MEDS: FINASTERIDE 1 MG PO SCH (09:55)
[2021-01-02 11:00] VITALS: BP 122/65
[2021-01-02] MEDS: heparin 25,000 UNIT/250ml bag 250 ML IV SCH ×2 (11:20→14:38)
[2021-01-02] MEDS: insulin regular, human U-100 3ml vial - multi-dose SQ SCH ×2 (14:34→20:54)
[2021-01-02] MEDS: heparin 10,000 units/1 ML INJ IV PRN (14:37)
[2021-01-02 15:00] VITALS: BP 124/66
[2021-01-02 18:00] VITALS: BP 128/51
--- NOTE | 2021-01-02 18:40 | NUR ---
Patient in room PCU 3014A. I have received report from TANNER Herzog and had the opportunity to ask questions and assume patient care.
--- NOTE | 2021-01-02 18:42 | NUR ---
Problems reprioritized. Patient report given, questions answered & plan of care reviewed with Shayla HART.
[2021-01-02] MEDS: lactobacillus rhamnosus 10,000 MMU CELLS/CAPSULE PO SCH (19:48)
--- NOTE | 2021-01-02 19:56 | NUR ---
PAGER ID: [phone] MESSAGE: [phone] TANNER Cho for Edel Wardicker in [id number]. Pt weight in 44kg, how much do I bolus with Heparin when PTT is 43 secs? Her weight is not on protocol chart. Thanks
[2021-01-02] MEDS: insulin glargine (Lantus) pen - multi-dose SQ SCH (20:56)
[2021-01-02] MEDS: ZINC/COPPER/MANGANESE/SELENIUM 1 ML, chromic chloride inj. 10 MCG in AA 5%/CALCIUM/LYTE... IV SCH (20:57)
[2021-01-02 22:00] VITALS: BP 99/43
[2021-01-03] MEDS: heparin 10,000 units/1 ML INJ IV PRN (01:46)
[2021-01-03] MEDS: insulin regular, human U-100 3ml vial - multi-dose SQ SCH ×4 (01:56→20:31)
[2021-01-03 02:00] VITALS: BP 94/40
[2021-01-03] MEDS: morphine 2 MG/ML inj. syringe IV PRN ×4 (05:12→20:34)
[2021-01-03] MEDS: heparin 25,000 UNIT/250ml bag 250 ML IV SCH ×2 (05:17→21:56)
--- NOTE | 2021-01-03 06:33 | NUR ---
Patient in room PCU 3014. I have received report from Shayla HART and had the opportunity to ask questions and assume patient care.
--- NOTE | 2021-01-03 06:33 | NUR ---
Problems reprioritized. Patient report given, questions answered & plan of care reviewed with TANNER Amaya.
[2021-01-03 07:00] VITALS: BP 121/58
[2021-01-03 07:26] LABS: BASOPHILS # (AUTO) 0.1 X10'3 (0-0.2); EOSINOPHILS # (AUTO) 0.1 X10'3 (0-0.9); HEMOGLOBIN 9.4 g/dl (12.0-16.0); MEAN CORPUSCULAR HEMOGLOBIN 26.6 PG (27.0-31.0); NEUTROPHILS # (AUTO) 7.8 X10'3 (1.8-7.7); RED BLOOD COUNT 3.52 X10'6 (4.20-5.60)
[2021-01-03 07:28] LABS: BASOPHILS % (AUTO) 0.7 % (0-1); EOSINOPHILS % (AUTO) 1.1 % (0-6); HEMATOCRIT 28.8 % (35.0-45.0); LYMPHOCYTES # (AUTO) 1.4 X10'3 (1.1-4.8); LYMPHOCYTES % (AUTO) 12.6 % (21-51); MEAN CORPUSCULAR HGB CONC 32.5 g/dL (33.0-36.5); MEAN CORPUSCULAR VOLUME 81.8 FL (78-98); MEAN PLATELET VOLUME 6.2 FL (7.4-10.4); MONOCYTES # (AUTO) 1.9 X10'3 (0-0.9); MONOCYTES % (AUTO) 16.8 % (2-12); NEUTROPHILS % (AUTO) 68.8 % (42-75); PLATELET COUNT 339 X10'3 (140-440); RED CELL DISTRIBUTION WIDTH 21.4 % (11.5-14.5); WHITE BLOOD COUNT 11.4 X10'3 (4.5-11.0)
[2021-01-03] MEDS: lactose-reduced food (Ensure High Protein) 237ml bottle PO SCH ×2 (07:30→17:30)
[2021-01-03 07:56] LABS: ALANINE AMINOTRANSFERASE 20 U/L (12-78); ALBUMIN/GLOBULIN RATIO 0.4 (1.1-1.5); ALKALINE PHOSPHATASE 51 IU/L (46-116); ANION GAP 6 (8-16); ASPARTATE AMINO TRANSFERASE 15 U/L (10-37); BILIRUBIN,TOTAL 0.2 MG/DL (0.1-1.0); BLOOD UREA NITROGEN 28 MG/DL (7-18); BUN/CREATININE RATIO 45.2 (6.6-38.0); CHLORIDE 101 MMOL/L (99-107); CREATININE 0.62 MG/DL (0.40-0.90); GLUCOSE 107 MG/DL (70-104); MAGNESIUM 2.2 MG/DL (1.5-2.4); PHOSPHORUS 4.8 MG/DL (2.3-4.5); POTASSIUM 4.2 MMOL/L (3.5-5.1); SODIUM 134 MMOL/L (135-145); TOTAL CARBON DIOXIDE 26.9 MMOL/L (24-32); TOTAL PROTEIN 6.6 G/DL (6.4-8.2); eGFR > 90 ML/MIN
[2021-01-03] MEDS: docusate sod 100mg capsule PO SCH ×2 (08:00→20:00)
[2021-01-03] MEDS: polyethylene glycol 3350 17gm powd pack PO SCH ×2 (08:00→20:00)
[2021-01-03] MEDS: JUVEN Smoothie Arginine/Glut./Ca2+Bmb (Juven 19.3pkt) 240ml cup PO SCH ×2 (08:00→13:00)
[2021-01-03] MEDS: K and/or MAG REPLACEMENT MC SCH ×2 (08:00→20:00)
[2021-01-03] MEDS: FINASTERIDE 1 MG PO SCH (08:26)
[2021-01-03] MEDS: cefepime 1GM in D5W 50mL 50 ML IV SCH ×2 (08:26→15:56)
[2021-01-03] MEDS: metroNIDAZOLE 500mg tablet PO SCH ×2 (08:27→20:00)
[2021-01-03] MEDS: prednisone 10mg tablet PO SCH (08:27)
[2021-01-03] MEDS: multivitamins, therapeutics tablet PO SCH (08:27)
[2021-01-03] MEDS: lactobacillus rhamnosus 10,000 MMU CELLS/CAPSULE PO SCH ×2 (08:27→20:00)
[2021-01-03] MEDS: ferrous sulfate 325mg tablet PO SCH (08:28)
[2021-01-03 09:06] LABS: PLATELET ESTIMATE NORMAL; TOTAL CELLS COUNTED 100
[2021-01-03 09:07] LABS: ANISOCYTOSIS 3+
[2021-01-03] MEDS: ondansetron/PF 4mg/2ml inj IV PRN ×2 (09:15→20:36)
[2021-01-03 11:00] VITALS: BP 118/65
[2021-01-03 15:00] VITALS: BP 132/51
[2021-01-03 18:00] VITALS: BP 113/58
--- NOTE | 2021-01-03 18:31 | NUR ---
Problems reprioritized. Patient report given, questions answered & plan of care reviewed with Ivy HART.
[2021-01-03 22:00] VITALS: BP 112/59
[2021-01-03] MEDS: insulin glargine (Lantus) pen - multi-dose SQ SCH (22:00)
[2021-01-03] MEDS: ZINC/COPPER/MANGANESE/SELENIUM 1 ML, chromic chloride inj. 10 MCG in AA 5%/CALCIUM/LYTE... IV SCH (22:02)
[2021-01-04] MEDS: cefepime 1GM in D5W 50mL 50 ML IV SCH ×3 (01:06→16:26)
[2021-01-04] MEDS: morphine 2 MG/ML inj. syringe IV PRN ×5 (01:15→22:49)
[2021-01-04 02:00] VITALS: BP 120/55
[2021-01-04 06:00] VITALS: BP 129/84
--- NOTE | 2021-01-04 06:26 | NUR ---
Problems reprioritized. Patient report given, questions answered & plan of care reviewed with TANNER Amaya.
--- NOTE | 2021-01-04 06:43 | NUR ---
Patient in room PCU 3014. I have received report from Ivy HART and had the opportunity to ask questions and assume patient care.
[2021-01-04] MEDS: lactose-reduced food (Ensure High Protein) 237ml bottle PO SCH ×2 (07:30→17:30)
[2021-01-04] MEDS: FINASTERIDE 1 MG PO SCH (07:33)
[2021-01-04] MEDS: ferrous sulfate 325mg tablet PO SCH (07:34)
[2021-01-04] MEDS: lactobacillus rhamnosus 10,000 MMU CELLS/CAPSULE PO SCH ×2 (07:35→20:18)
[2021-01-04] MEDS: prednisone 10mg tablet PO SCH (07:35)
[2021-01-04] MEDS: multivitamins, therapeutics tablet PO SCH (07:35)
[2021-01-04] MEDS: docusate sod 100mg capsule PO SCH ×2 (08:00→20:00)
[2021-01-04] MEDS: polyethylene glycol 3350 17gm powd pack PO SCH ×2 (08:00→20:00)
[2021-01-04] MEDS: K and/or MAG REPLACEMENT MC SCH ×2 (08:00→20:00)
[2021-01-04] MEDS ORDERED: heparin 10,000 units/1 ML INJ IV ONE (09:25)
[2021-01-04] MEDS ORDERED: heparin 25,000 UNIT/250ml bag 250 ML IV SCH (09:25)
--- NOTE | 2021-01-04 09:47 | NUR ---
Reassessment: Patient's PO intake down to 50-75% of meals with ~75% PO intake of ONS though pt continues with TPN so estimated nutrient needs are being met. Sergio ONS has appropriately been discontinued and pt placed on clear liquid diet for dinner last night, though NPO now pending surgery. LBM 01/04. Will continue to follow and make recommendations as appropriate post-op. Recommendations: 1) Advance to low fiber/gluten free diet as medically indicated post-op 2) Ensure High Protein BIDBD once diet is advanced from clear liquids post-op 3) Continuous TPN using 2:1 Clinimix-E 07/21 with 60 mL/hr goal rate per MD to provide 1440 mL total volume/day, 1267 kcal, 72 g AA, and 288 g dext (3.66 mg/kg/min dext load) 4) No lipids with PN given pt with a PO diet 5) Prealbumin and TG q Saturday/ 6) Daily scaled weights 7) Bowel care per MD; consider antidiarrheal Addendum: 01/04/21 at [address] Amended: Links added.
[2021-01-04 11:00] VITALS: BP 117/55
[2021-01-04 12:26] LABS: BASOPHILS % (AUTO) 0.3 % (0-1); EOSINOPHILS % (AUTO) 0.3 % (0-6); HEMATOCRIT 30.9 % (35.0-45.0); HEMOGLOBIN 10.2 g/dl (12.0-16.0); LYMPHOCYTES # (AUTO) 0.5 X10'3 (1.1-4.8); LYMPHOCYTES % (AUTO) 4.8 % (21-51); MEAN CORPUSCULAR HGB CONC 33.1 g/dL (33.0-36.5); MEAN CORPUSCULAR VOLUME 81.8 FL (78-98); MEAN PLATELET VOLUME 6.3 FL (7.4-10.4); MONOCYTES # (AUTO) 1.2 X10'3 (0-0.9); MONOCYTES % (AUTO) 11.3 % (2-12); NEUTROPHILS # (AUTO) 9.1 X10'3 (1.8-7.7); NEUTROPHILS % (AUTO) 83.3 % (42-75); PLATELET COUNT 324 X10'3 (140-440); RED BLOOD COUNT 3.78 X10'6 (4.20-5.60); RED CELL DISTRIBUTION WIDTH 21.3 % (11.5-14.5); WHITE BLOOD COUNT 10.9 X10'3 (4.5-11.0)
[2021-01-04 12:35] LABS: ALANINE AMINOTRANSFERASE 19 U/L (12-78); ALBUMIN 2.2 G/DL (3.4-5.0); ALBUMIN/GLOBULIN RATIO 0.4 (1.1-1.5); ALKALINE PHOSPHATASE 51 IU/L (46-116); ANION GAP 7 (8-16); ASPARTATE AMINO TRANSFERASE 15 U/L (10-37); BILIRUBIN,TOTAL 0.2 MG/DL (0.1-1.0); BLOOD UREA NITROGEN 19 MG/DL (7-18); BUN/CREATININE RATIO 30.2 (6.6-38.0); CHLORIDE 99 MMOL/L (99-107); CREATININE 0.63 MG/DL (0.40-0.90); GLUCOSE 204 MG/DL (70-104); POTASSIUM 4.7 MMOL/L (3.5-5.1); SODIUM 132 MMOL/L (135-145); TOTAL CARBON DIOXIDE 26.4 MMOL/L (24-32); TOTAL PROTEIN 7.1 G/DL (6.4-8.2); eGFR > 90 ML/MIN
[2021-01-04 13:43] LABS: ANISOCYTOSIS 3+; BURR CELLS 1+; PLATELET ESTIMATE NORMAL; TOTAL CELLS COUNTED 100
[2021-01-04 15:00] VITALS: BP 128/70
[2021-01-04 18:00] VITALS: BP 126/71
--- NOTE | 2021-01-04 18:35 | NUR ---
Problems reprioritized. Patient report given, questions answered & plan of care reviewed with Ivy HART.
[2021-01-04] MEDS: ZINC/COPPER/MANGANESE/SELENIUM 1 ML, chromic chloride inj. 10 MCG in AA 5%/CALCIUM/LYTE... IV SCH (19:00)
[2021-01-04] MEDS: insulin glargine (Lantus) pen - multi-dose SQ SCH (21:00)
[2021-01-04 22:00] VITALS: BP 126/63
[2021-01-05] VITALS (8 sets, daily range): BP systolic 115–184; BP diastolic 65–137
[2021-01-05] MEDS: cefepime 1GM in D5W 50mL 50 ML IV SCH ×2 (00:36→08:13)
--- NOTE | 2021-01-05 00:50 | NUR ---
Dr Busch notified of lab values as well as PT still being very painful despite Morphine administration. Order received for Dustinaudid. Will administer as soon as available form pharmacy. Addendum: 01/06/21 at 0104 by aKtlyn Schuster RN Wrong time. Note meant for 4862 on 01/05
[2021-01-05] MEDS: morphine 2 MG/ML inj. syringe IV PRN ×4 (03:50→22:27)
--- NOTE | 2021-01-05 06:10 | NUR ---
Patient in room PCU 3014. I have received report from Ivy HART and had the opportunity to ask questions and assume patient care.
[2021-01-05 06:12] LABS: ALANINE AMINOTRANSFERASE 18 U/L (12-78); ALBUMIN 2.1 G/DL (3.4-5.0); ALBUMIN/GLOBULIN RATIO 0.4 (1.1-1.5); ALKALINE PHOSPHATASE 50 IU/L (46-116); ANION GAP 6 (8-16); ASPARTATE AMINO TRANSFERASE 10 U/L (10-37); BILIRUBIN,TOTAL 0.1 MG/DL (0.1-1.0); BLOOD UREA NITROGEN 15 MG/DL (7-18); BUN/CREATININE RATIO 25.9 (6.6-38.0); CALCIUM 8.9 MG/DL (8.5-10.1); CHLORIDE 101 MMOL/L (99-107); CREATININE 0.58 MG/DL (0.40-0.90); GLUCOSE 132 MG/DL (70-104); POTASSIUM 4.1 MMOL/L (3.5-5.1); SODIUM 134 MMOL/L (135-145); TOTAL CARBON DIOXIDE 26.6 MMOL/L (24-32); TOTAL PROTEIN 6.9 G/DL (6.4-8.2); TRIGLYCERIDES 54 MG/DL (20-135); eGFR > 90 ML/MIN
[2021-01-05 06:15] LABS: EOSINOPHILS # (AUTO) 0.1 X10'3 (0-0.9); HEMATOCRIT 30.9 % (35.0-45.0)
[2021-01-05 06:16] LABS: BASOPHILS # (AUTO) 0.1 X10'3 (0-0.2); BASOPHILS % (AUTO) 0.6 % (0-1); EOSINOPHILS % (AUTO) 1.1 % (0-6); HEMOGLOBIN 10.2 g/dl (12.0-16.0); LYMPHOCYTES # (AUTO) 1.4 X10'3 (1.1-4.8); LYMPHOCYTES % (AUTO) 13.6 % (21-51); MEAN CORPUSCULAR HEMOGLOBIN 26.7 PG (27.0-31.0); MEAN CORPUSCULAR HGB CONC 32.9 g/dL (33.0-36.5); MEAN CORPUSCULAR VOLUME 81.2 FL (78-98); MEAN PLATELET VOLUME 6.6 FL (7.4-10.4); MONOCYTES # (AUTO) 1.9 X10'3 (0-0.9); MONOCYTES % (AUTO) 17.8 % (2-12); NEUTROPHILS % (AUTO) 66.9 % (42-75); PLATELET COUNT 324 X10'3 (140-440); RED CELL DISTRIBUTION WIDTH 21.7 % (11.5-14.5); WHITE BLOOD COUNT 10.5 X10'3 (4.5-11.0)
--- NOTE | 2021-01-05 06:27 | NUR ---
Problems reprioritized. Patient report given, questions answered & plan of care reviewed with TANNER Muñoz.
[2021-01-05] MEDS: lactose-reduced food (Ensure High Protein) 237ml bottle PO SCH ×2 (07:30→17:30)
[2021-01-05 07:53] LABS: ANISOCYTOSIS 3+; PLATELET ESTIMATE NORMAL; TOTAL CELLS COUNTED 100
[2021-01-05] MEDS: polyethylene glycol 3350 17gm powd pack PO SCH ×2 (08:00→20:00)
[2021-01-05] MEDS: docusate sod 100mg capsule PO SCH ×2 (08:00→20:00)
[2021-01-05] MEDS: K and/or MAG REPLACEMENT MC SCH ×2 (08:00→20:00)
[2021-01-05] MEDS: ferrous sulfate 325mg tablet PO SCH (08:13)
[2021-01-05] MEDS: multivitamins, therapeutics tablet PO SCH (08:13)
[2021-01-05] MEDS: lactobacillus rhamnosus 10,000 MMU CELLS/CAPSULE PO SCH ×2 (08:14→20:00)
[2021-01-05] MEDS: prednisone 10mg tablet PO SCH (08:14)
[2021-01-05] MEDS: FINASTERIDE 1 MG PO SCH (08:41)
[2021-01-05] MEDS ORDERED: BUPIVAcaine/PF 2.5 mg/ml (0.25%) 30ml vial ONE (13:22)
[2021-01-05] MEDS ORDERED: povidone-iodine 10% ointment 1 APPLIC APPLIC TP ONE (13:23)
[2021-01-05] MEDS ORDERED: LIDOCAINE 1%/EPI 1:100,000 inj. 10 ML multi-dose vial ONE (13:23)
--- NOTE | 2021-01-05 14:25 | NUR ---
Pt picked up by OR team and taken down to OR.
[2021-01-05] MEDS ORDERED: BUPIVAcaine/PF 2.5mg/ml (0.25%) 10ml vial ONE (15:03)
[2021-01-05] MEDS ORDERED: BUPIVACAINE liposomal/PF 13.3 MG/ML vial IM ONE (15:04)
[2021-01-05] MEDS ORDERED: midazolam 1 mg/ML 2ml injection ONE (15:17)
[2021-01-05] MEDS ORDERED: fentaNYL /PF 50mcg/ml 5ml ampule ONE ×2 (15:19→18:05)
[2021-01-05] MEDS ORDERED: propofol inj 20 ML IV ONE (15:20)
[2021-01-05] MEDS ORDERED: rocuronium 10mg/ml inj IV ONE (15:21)
[2021-01-05] MEDS ORDERED: hydrocortisone sod succ/PF 100mg/2ml inj. ONE (16:08)
[2021-01-05] MEDS: ZINC/COPPER/MANGANESE/SELENIUM 1 ML, chromic chloride inj. 10 MCG in AA 5%/CALCIUM/LYTE... IV SCH (19:00)
[2021-01-05] MEDS ORDERED: morphine 4 MG/ML inj SYRINge ONE (21:10)
[2021-01-05] MEDS ORDERED: ondansetron/PF 4mg/2ml inj ONE (22:06)
[2021-01-05] MEDS ORDERED: LIDOcaine 1% 30ml preserv. free vial ONE (22:27)
[2021-01-05] MEDS ORDERED: morphine 2 MG/ML inj. syringe IV PRN (22:40)
[2021-01-05 22:43] LABS: EOSINOPHILS % (AUTO) 0 % (0-6); MONOCYTES # (AUTO) 0.8 X10'3 (0-0.9)
[2021-01-05 22:45] LABS: BASOPHILS % (AUTO) 0.2 % (0-1); HEMATOCRIT 34.5 % (35.0-45.0); HEMOGLOBIN 11.3 g/dl (12.0-16.0); LYMPHOCYTES # (AUTO) 0.5 X10'3 (1.1-4.8); LYMPHOCYTES % (AUTO) 2.1 % (21-51); MEAN CORPUSCULAR HEMOGLOBIN 27.7 PG (27.0-31.0); MEAN CORPUSCULAR HGB CONC 32.7 g/dL (33.0-36.5); MEAN CORPUSCULAR VOLUME 84.5 FL (78-98); MEAN PLATELET VOLUME 6.1 FL (7.4-10.4); MONOCYTES % (AUTO) 3.8 % (2-12); NEUTROPHILS # (AUTO) 20.6 X10'3 (1.8-7.7); NEUTROPHILS % (AUTO) 93.9 % (42-75); PLATELET COUNT 269 X10'3 (140-440); RED BLOOD COUNT 4.08 X10'6 (4.20-5.60); RED CELL DISTRIBUTION WIDTH 19.5 % (11.5-14.5)
[2021-01-05] MEDS ORDERED: morphine 2 MG/ML inj. syringe IV ONE (22:45)
--- NOTE | 2021-01-05 22:45 | NUR ---
PT arrived from OR via ICU bed accompanied by OR nurse and Anesthesia. PT in receiving O2 via simple mask, tolerating well with O2 sat >97%. VSS. Drsg to ABD, QUINCY drain to Rt and LT side. Some oozing noted to LT QUINCY site, MD aware and placed additional sutures at bedside. PT painful and will medicate accordingly. Centeno in place and draining to gravity. Bed is locked and low. Will continue to monitor.
[2021-01-05 22:56] LABS: ALANINE AMINOTRANSFERASE 19 U/L (12-78); ALBUMIN 1.7 G/DL (3.4-5.0); ALBUMIN/GLOBULIN RATIO 0.4 (1.1-1.5); ALKALINE PHOSPHATASE 43 IU/L (46-116); ANION GAP 8 (8-16); ASPARTATE AMINO TRANSFERASE 20 U/L (10-37); BILIRUBIN,TOTAL 0.6 MG/DL (0.1-1.0); BLOOD UREA NITROGEN 18 MG/DL (7-18); BUN/CREATININE RATIO 26.1 (6.6-38.0); CALCIUM 7.7 MG/DL (8.5-10.1); CHLORIDE 104 MMOL/L (99-107); CREATININE 0.69 MG/DL (0.40-0.90); GLUCOSE 317 MG/DL (70-104); MAGNESIUM 1.5 MG/DL (1.5-2.4); PHOSPHORUS 3.8 MG/DL (2.3-4.5); POTASSIUM 4.2 MMOL/L (3.5-5.1); SODIUM 132 MMOL/L (135-145); TOTAL CARBON DIOXIDE 20.2 MMOL/L (24-32); TOTAL PROTEIN 5.5 G/DL (6.4-8.2); eGFR 83 ML/MIN
[2021-01-05] MEDS: insulin glargine (Lantus) pen - multi-dose SQ SCH (23:29)
[2021-01-05] MEDS: levoFLOXACIN-Levaquin 500mg/D5 100 ML IV SCH (23:49)
[2021-01-05] MEDS: hydrocortisone sod succ/PF 100mg/2ml inj. IV SCH (23:50)
[2021-01-05 23:53] LABS: ANISOCYTOSIS 2+; BURR CELLS 1+; PLATELET ESTIMATE NORMAL; TOTAL CELLS COUNTED 100
[2021-01-05] MEDS: ondansetron/PF 4mg/2ml inj IV PRN (23:58)
[2021-01-06] VITALS (19 sets, daily range): BP systolic 118–173; BP diastolic 56–142
[2021-01-06] MEDS ORDERED: hydrocortisone sod succ/PF 100mg/2ml inj. IV SCH
--- NOTE | 2021-01-06 00:42 | NUR ---
Dr Busch notified of PT's continued nausea after Zofran administration. Order received for Compazine. Will administer as soon as it is available from pharmacy.
[2021-01-06] MEDS: proCHLORperazine 10 MG/2 ml inj IV PRN ×2 (01:08→17:42)
[2021-01-06] MEDS: metroNIDAZOLE-Flagyl 500mg/NS 100 ML IV SCH ×3 (01:19→15:51)
[2021-01-06] MEDS: HYDROmorphone inj. 0.5 MG/0.5 ML DISP.SYRIN IV PRN ×4 (01:35→07:15)
[2021-01-06] MEDS: insulin regular, human U-100 3ml vial - multi-dose SQ SCH ×3 (03:52→20:52)
[2021-01-06 04:36] LABS: BASOPHILS % (AUTO) 0.1 % (0-1); EOSINOPHILS % (AUTO) 0 % (0-6); HEMATOCRIT 35.7 % (35.0-45.0); HEMOGLOBIN 11.8 g/dl (12.0-16.0); LYMPHOCYTES # (AUTO) 0.4 X10'3 (1.1-4.8); LYMPHOCYTES % (AUTO) 1.4 % (21-51); MEAN CORPUSCULAR HEMOGLOBIN 27.6 PG (27.0-31.0); MEAN CORPUSCULAR HGB CONC 32.9 g/dL (33.0-36.5); MEAN CORPUSCULAR VOLUME 84.1 FL (78-98); MEAN PLATELET VOLUME 6.4 FL (7.4-10.4); MONOCYTES # (AUTO) 0.8 X10'3 (0-0.9); MONOCYTES % (AUTO) 2.9 % (2-12); NEUTROPHILS # (AUTO) 25.9 X10'3 (1.8-7.7); NEUTROPHILS % (AUTO) 95.6 % (42-75); PLATELET COUNT 237 X10'3 (140-440); RED BLOOD COUNT 4.25 X10'6 (4.20-5.60); RED CELL DISTRIBUTION WIDTH 18.8 % (11.5-14.5)
[2021-01-06 04:43] LABS: PARTIAL THROMBOPLASTIN TIME 28 SECONDS (22-32)
[2021-01-06 04:44] LABS: WHITE BLOOD COUNT 27.1 X10'3 (4.5-11.0)
[2021-01-06 04:45] LABS: ALANINE AMINOTRANSFERASE 21 U/L (12-78); ALBUMIN 1.7 G/DL (3.4-5.0); ALBUMIN/GLOBULIN RATIO 0.4 (1.1-1.5); ALKALINE PHOSPHATASE 43 IU/L (46-116); ANION GAP 9 (8-16); ASPARTATE AMINO TRANSFERASE 19 U/L (10-37); BILIRUBIN,TOTAL 0.5 MG/DL (0.1-1.0); BLOOD UREA NITROGEN 18 MG/DL (7-18); BUN/CREATININE RATIO 32.7 (6.6-38.0); CALCIUM 7.6 MG/DL (8.5-10.1); CHLORIDE 103 MMOL/L (99-107); CREATININE 0.55 MG/DL (0.40-0.90); GLUCOSE 254 MG/DL (70-104); POTASSIUM 4.1 MMOL/L (3.5-5.1); SODIUM 135 MMOL/L (135-145); TOTAL CARBON DIOXIDE 22.7 MMOL/L (24-32); TOTAL PROTEIN 5.7 G/DL (6.4-8.2); eGFR > 90 ML/MIN
--- NOTE | 2021-01-06 05:54 | NUR ---
Dr Busch notified d/t receiving critical WBC. He was updated on PT's condition. No new orders at this time as PT is on multiple ABX. Will continue to monitor.
--- NOTE | 2021-01-06 06:40 | NUR ---
Problems reprioritized. Patient report given, questions answered & plan of care reviewed with Rosenda HART.
[2021-01-06] MEDS ORDERED: fluconazole-Diflucan 200mg/NS 100 ML IV ONE (07:15)
[2021-01-06] MEDS ORDERED: naloxone 0.4 mg/ml inj IV PRN ×2 (07:15)
[2021-01-06] MEDS ORDERED: CADD PCA waste documentation MC PRN ×2 (07:15)
[2021-01-06] MEDS: lactose-reduced food (Ensure High Protein) 237ml bottle PO SCH ×2 (07:30→17:30)
[2021-01-06] MEDS: hydrocortisone sod succ/PF 100mg/2ml inj. IV SCH ×2 (07:37→15:51)
[2021-01-06] MEDS: multivitamins, therapeutics tablet PO SCH (07:37)
[2021-01-06] MEDS: ferrous sulfate 325mg tablet PO SCH (07:37)
[2021-01-06] MEDS: K and/or MAG REPLACEMENT MC SCH ×2 (08:00→20:00)
[2021-01-06] MEDS: FINASTERIDE 1 MG PO SCH (08:24)
[2021-01-06] MEDS: HYDROmorph./NS 0.2 mg/ml CADD 100 ML IV SCH ×8 (10:01→23:00)
[2021-01-06] MEDS: levoFLOXACIN-Levaquin 500mg/D5 100 ML IV SCH (12:27)
--- NOTE | 2021-01-06 12:44 | NUR ---
Report given to Maico HART to transfer to [id number].
--- NOTE | 2021-01-06 14:13 | NUR ---
Retrieved from pts EMR: Pt is a 75-year-old female who presented possible sepsis, has severe and chronic ulcerative colitis and had ileostomy formed on this admit. She is new to ostomy and stated she had keno attendant. Wound care at bedside to see pt, who gave verbal consent for instruction. Though distracted by pain, pt was as attentive as they could be, but will need follow up. She was educated on bag and wafer change from start to finish, how to empty bag, how to size to stoma, and how to work the materials. Pt was educated on cleansing of the stoma itself and surrounding skin. Pt was provided with materials to last at least a week of appliance changes, states she has home health and will be signed up with [facility] per pt consent for samples and information. Pt will still need to be educated on problems and troubleshooting. Addendum: 01/06/21 at 1413 by Puja Conti RN Amended: Links added.
[2021-01-06] MEDS: ondansetron/PF 4mg/2ml inj IV PRN (16:36)
--- NOTE | 2021-01-06 18:10 | NUR ---
Patient in room PCU 3017. I have received report from TANNER Nina and had the opportunity to ask questions and assume patient care.
[2021-01-06] MEDS: ZINC/COPPER/MANGANESE/SELENIUM 1 ML, chromic chloride inj. 10 MCG in AA 5%/CALCIUM/LYTE... IV SCH (19:00)
[2021-01-06] MEDS: insulin glargine (Lantus) pen - multi-dose SQ SCH (20:53)
[2021-01-07] MEDS: proCHLORperazine 10 MG/2 ml inj IV PRN ×2 (00:05→13:50)
[2021-01-07] MEDS: metroNIDAZOLE-Flagyl 500mg/NS 100 ML IV SCH ×3 (00:25→18:13)
[2021-01-07] MEDS: hydrocortisone sod succ/PF 100mg/2ml inj. IV SCH ×2 (00:26→18:14)
[2021-01-07] MEDS: HYDROmorph./NS 0.2 mg/ml CADD 100 ML IV SCH ×13 (01:00→23:19)
[2021-01-07 03:00] VITALS: BP 128/59
[2021-01-07] MEDS: insulin regular, human U-100 3ml vial - multi-dose SQ SCH ×3 (03:58→21:05)
[2021-01-07] MEDS: temazepam 15mg capsule PO PRN (04:17)
--- NOTE | 2021-01-07 06:25 | NUR ---
Problems reprioritized. Patient report given, questions answered & plan of care reviewed with TANNER Palafox.
[2021-01-07 07:00] VITALS: BP 126/57
--- NOTE | 2021-01-07 07:07 | NUR ---
Patient in room PCU 3017. I have received report from Didi HART and had the opportunity to ask questions and assume patient care. Pt semi fowlers in bed, alert to nurses movements in the room. pt endorses desire to sleep. breathing even and non labored. TPN/NS running. no s/sx acute distress.
[2021-01-07] MEDS: lactose-reduced food (Ensure High Protein) 237ml bottle PO SCH ×2 (07:30→17:30)
[2021-01-07] MEDS: K and/or MAG REPLACEMENT MC SCH ×2 (08:00→20:00)
[2021-01-07] MEDS ORDERED: fluconazole-Diflucan 100MG/NS 50 ML IV SCH (08:00)
--- NOTE | 2021-01-07 08:30 | NUR ---
Dr. Bermudez to see pt Per Dr. Bermudez, he wants pt walking as much as she can or laying in bed, moving from side to side intermittently. Dr. Bermudez wants pt to avoid sitting. Dr. Bermudez ordered d/c henry cath. pt requesting bladder training prior. ok with that. new order for wet to dry dressing to abd Qshift. and requesting lipids added to TPN. Dr. Hernandez notified.
[2021-01-07 08:56] LABS: BASOPHILS # (AUTO) 0.1 X10'3 (0-0.2); BASOPHILS % (AUTO) 0.2 % (0-1); HEMOGLOBIN 10.2 g/dl (12.0-16.0); MONOCYTES # (AUTO) 2.3 X10'3 (0-0.9); MONOCYTES % (AUTO) 5.2 % (2-12)
[2021-01-07 08:58] LABS: EOSINOPHILS # (AUTO) 0.3 X10'3 (0-0.9); EOSINOPHILS % (AUTO) 0.6 % (0-6); LYMPHOCYTES # (AUTO) 0.9 X10'3 (1.1-4.8); MEAN CORPUSCULAR HEMOGLOBIN 27.7 PG (27.0-31.0); MEAN CORPUSCULAR VOLUME 84.1 FL (78-98); MEAN PLATELET VOLUME 6.2 FL (7.4-10.4); PLATELET COUNT 161 X10'3 (140-440); RED BLOOD COUNT 3.69 X10'6 (4.20-5.60); RED CELL DISTRIBUTION WIDTH 19.4 % (11.5-14.5)
[2021-01-07 09:03] LABS: WHITE BLOOD COUNT 43.4 X10'3 (4.5-11.0)
[2021-01-07 09:13] LABS: ALANINE AMINOTRANSFERASE 19 U/L (12-78); ALBUMIN 1.6 G/DL (3.4-5.0); ALBUMIN/GLOBULIN RATIO 0.4 (1.1-1.5); ALKALINE PHOSPHATASE 54 IU/L (46-116); ANION GAP 8 (8-16); ASPARTATE AMINO TRANSFERASE 15 U/L (10-37); BILIRUBIN,TOTAL 0.2 MG/DL (0.1-1.0); BLOOD UREA NITROGEN 17 MG/DL (7-18); BUN/CREATININE RATIO 31.5 (6.6-38.0); CALCIUM 8.8 MG/DL (8.5-10.1); CHLORIDE 103 MMOL/L (99-107); CREATININE 0.54 MG/DL (0.40-0.90); GLUCOSE 94 MG/DL (70-104); POTASSIUM 3.8 MMOL/L (3.5-5.1); SODIUM 137 MMOL/L (135-145); TOTAL CARBON DIOXIDE 25.7 MMOL/L (24-32); TOTAL PROTEIN 5.4 G/DL (6.4-8.2); eGFR > 90 ML/MIN
--- NOTE | 2021-01-07 09:13 | NUR ---
Critical WBC 43.4: Dr. Mary cunningham.
[2021-01-07 09:27] LABS: PLATELET ESTIMATE NORMAL; TOTAL CELLS COUNTED 100
[2021-01-07 09:28] LABS: ANISOCYTOSIS 2+; MICROCYTOSIS 1+
--- NOTE | 2021-01-07 09:30 | NUR ---
Dr. Hernandez to see pt. new orders for sepsis checks: CXR, blood cultures, UA c ENVIRONMENTAL PROGRAMS SPECIALIST if ind., lacticsepsis, procalcitonin. Dr. Hernandez requested and was given Dr. Bermudez telephone number.
--- NOTE | 2021-01-07 09:31 | NUR ---
Dr. Bermudez called and notified of critical WBC and that Dr. Hernandez would be getting in contact with him shortly.
[2021-01-07] MEDS: FINASTERIDE 1 MG PO SCH (09:56)
[2021-01-07] MEDS: multivitamins, therapeutics tablet PO SCH (09:56)
[2021-01-07] MEDS: ferrous sulfate 325mg tablet PO SCH (09:56)
[2021-01-07] MEDS: levoFLOXACIN-Levaquin 500mg/D5 100 ML IV SCH (10:03)
[2021-01-07 11:00] VITALS: BP 128/51
[2021-01-07 12:08] LABS: CLARITY,URINE SLIGHTLY CLOUDY (Clear); COLOR,URINE YELLOW (Yellow); GLUCOSE, URINE NEGATIVE (Neg); KETONES,URINE NEGATIVE (Neg); NITRITES, URINE NEGATIVE (Neg); OCCULT BLOOD,URINE LARGE (Neg); PROTEIN,URINE TRACE mg/dl (Neg); UA COLLECTION TYPE NON-SPECIFIED; UROBILINOGEN,URINE 0.2 E.U/dL (0.2-1.0)
[2021-01-07 12:09] LABS: LEUKOCYTE ESTERASE ,URINE NEGATIVE (Neg)
[2021-01-07 12:13] LABS: BACTERIA,URINE FEW /HPF (Neg); MUCUS STRANDS MODERATE /LPF (Neg); SQUAMOUS EPITHELIAL CELL,UR FEW /LPF (FEW)
[2021-01-07] MEDS ORDERED: vancomycin/NS 1 GM ADD-VANTAGE 250 ML IV SCH (13:10)
[2021-01-07] MEDS ORDERED: vancomycin/NS 1 GM ADD-VANTAGE 250 ML IV ONE (13:20)
--- NOTE | 2021-01-07 13:35 | NUR ---
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 Pt continues on clear liquid diet, documented with 100% PO intake pre-op however down to 0-25% PO intake post-op. Pt to continue with TPN per MD. Given current diet order and trends in PO intake, recommend adding lipids to TPN. See below for updated TPN recommendations that have been d/w dietary. Updated TPN recommendations will meet 100% of patient's estimated nutrient needs. Pt would benefit from ileostomy nutrition therapy education once stable. Will continue to follow closely. Recommendations: 1) Advance to low fiber/gluten free diet as medically indicated 2) Resume Ensure High Protein BIDBD once diet is advanced from clear liquids post-op 3) Continuous TPN using 2:1 Clinimix-E / with 60 mL/hr goal rate with additional 100 mL 20% intralipids to run at 8.33 mL/hr for 12 hours/day to provide 1540 mL total volume/day, 1467 kcal, 72 g AA, and 288 g dext (4.52 mg/kg/min dext load), and 20 g lipids 4) Prealbumin and TG q Saturday/ 5) Daily scaled weights 6) Bowel care per MD 7) Ileostomy nutrition therapy education once stable Addendum: 01/07/21 at [address] Amended: Links added.
--- NOTE | 2021-01-07 14:55 | NUR ---
blood sugar 99. pt declined insulin at this time, nurse agrees.
[2021-01-07 15:00] VITALS: BP 137/47
[2021-01-07] MEDS: CefTRIAXone/D5W-Rocephin 1gm 50 ML IV SCH (18:12)
--- NOTE | 2021-01-07 18:25 | NUR ---
Centeno d/c'd. tip intact.
--- NOTE | 2021-01-07 18:52 | NUR ---
Problems reprioritized. Patient report given, questions answered & plan of care reviewed with xavier HART. pt trevon s/sx acute distress. alert and verbal.
--- NOTE | 2021-01-07 18:55 | NUR ---
Patient in room PCU 3017. I have received report from TANNER Palafox and had the opportunity to ask questions and assume patient care.
[2021-01-07 19:00] VITALS: BP 145/68
[2021-01-07] MEDS: lactobacillus rhamnosus 10,000 MMU CELLS/CAPSULE PO SCH (20:56)
[2021-01-07] MEDS: ZINC/COPPER/MANGANESE/SELENIUM 1 ML, chromic chloride inj. 10 MCG in AA 5%/CALCIUM/LYTE... IV SCH (20:57)
[2021-01-07] MEDS: fat emulsion IV bag 250 ML IV SCH (20:57)
[2021-01-07] MEDS: insulin glargine (Lantus) pen - multi-dose SQ SCH (21:11)
[2021-01-07] MEDS: ondansetron/PF 4mg/2ml inj IV PRN (21:37)
[2021-01-07 23:00] VITALS: BP 139/60
[2021-01-08] MEDS: metroNIDAZOLE-Flagyl 500mg/NS 100 ML IV SCH ×4 (00:49→23:17)
[2021-01-08] MEDS: hydrocortisone sod succ/PF 100mg/2ml inj. IV SCH ×4 (00:49→23:19)
[2021-01-08 03:00] VITALS: BP 125/59
[2021-01-08] MEDS: HYDROmorph./NS 0.2 mg/ml CADD 100 ML IV SCH ×2 (03:00→05:00)
[2021-01-08] MEDS: insulin regular, human U-100 3ml vial - multi-dose SQ SCH ×4 (03:54→20:56)
[2021-01-08 06:00] VITALS: BP 125/61
--- NOTE | 2021-01-08 06:00 | NUR ---
Patient was c/o tenderness under her abdomen, no urine was noted, bladder scan was done with 473 mL. While going to straight cath pt, she req. to use the bedside commode, and 250 mL urine noted. Pericare given, linens changed. No more tender noted. Safety measures and comfort maintained. Upcoming nurse made aware.
--- NOTE | 2021-01-08 06:50 | NUR ---
Problems reprioritized. Patient report given, questions answered & plan of care reviewed with TANNER Malloy.
[2021-01-08] MEDS: lactose-reduced food (Ensure High Protein) 237ml bottle PO SCH ×2 (07:30→18:02)
[2021-01-08 07:44] LABS: LYMPHOCYTES # (AUTO) 0.7 X10'3 (1.1-4.8)
[2021-01-08 07:48] LABS: BASOPHILS # (AUTO) 0.1 X10'3 (0-0.2); BASOPHILS % (AUTO) 0.2 % (0-1); EOSINOPHILS % (AUTO) 0 % (0-6); HEMATOCRIT 29.9 % (35.0-45.0); HEMOGLOBIN 9.9 g/dl (12.0-16.0); LYMPHOCYTES % (AUTO) 1.9 % (21-51); MEAN CORPUSCULAR HEMOGLOBIN 27.9 PG (27.0-31.0); MEAN CORPUSCULAR HGB CONC 33.2 g/dL (33.0-36.5); MEAN CORPUSCULAR VOLUME 84.1 FL (78-98); MEAN PLATELET VOLUME 6.9 FL (7.4-10.4); MONOCYTES # (AUTO) 1.7 X10'3 (0-0.9); MONOCYTES % (AUTO) 4.6 % (2-12); NEUTROPHILS # (AUTO) 34.6 X10'3 (1.8-7.7); NEUTROPHILS % (AUTO) 93.3 % (42-75); PLATELET COUNT 196 X10'3 (140-440); RED BLOOD COUNT 3.56 X10'6 (4.20-5.60); RED CELL DISTRIBUTION WIDTH 20.1 % (11.5-14.5)
[2021-01-08] MEDS: K and/or MAG REPLACEMENT MC SCH ×2 (08:00→20:00)
[2021-01-08 08:08] LABS: ALANINE AMINOTRANSFERASE 21 U/L (12-78); ALBUMIN 1.5 G/DL (3.4-5.0); ALBUMIN/GLOBULIN RATIO 0.4 (1.1-1.5); ALKALINE PHOSPHATASE 76 IU/L (46-116); ANION GAP 7 (8-16); ASPARTATE AMINO TRANSFERASE 25 U/L (10-37); BILIRUBIN,TOTAL 0.2 MG/DL (0.1-1.0); BLOOD UREA NITROGEN 16 MG/DL (7-18); BUN/CREATININE RATIO 27.6 (6.6-38.0); C-REACTIVE PROTEIN 23.57 MG/DL (0.0-0.5); CHLORIDE 104 MMOL/L (99-107); CREATININE 0.58 MG/DL (0.40-0.90); GLUCOSE 173 MG/DL (70-104); POTASSIUM 3.6 MMOL/L (3.5-5.1); SODIUM 135 MMOL/L (135-145); TOTAL CARBON DIOXIDE 24.1 MMOL/L (24-32); TOTAL PROTEIN 5.7 G/DL (6.4-8.2); eGFR > 90 ML/MIN
[2021-01-08 08:37] LABS: WHITE BLOOD COUNT 37.1 X10'3 (4.5-11.0)
[2021-01-08 08:39] LABS: ANISOCYTOSIS 3+; BURR CELLS 2+; PLATELET ESTIMATE NORMAL; TOTAL CELLS COUNTED 100; TOXIC GRANULATION 1+
[2021-01-08 08:40] LABS: HYPERSEGMENTED NEUTROPHILS FEW
[2021-01-08] MEDS: multivitamins, therapeutics tablet PO SCH (09:23)
[2021-01-08] MEDS: lactobacillus rhamnosus 10,000 MMU CELLS/CAPSULE PO SCH ×2 (09:23→19:55)
[2021-01-08] MEDS: ferrous sulfate 325mg tablet PO SCH (09:23)
[2021-01-08] MEDS: CefTRIAXone/D5W-Rocephin 1gm 50 ML IV SCH (09:25)
[2021-01-08] MEDS: FINASTERIDE 1 MG PO SCH (09:25)
[2021-01-08 11:00] VITALS: BP 135/60
[2021-01-08] MEDS ORDERED: HYDROcodone/acetaminophen 5mg/325mg tablet PO PRN ×2 (11:40)
--- NOTE | 2021-01-08 11:53 | NUR ---
PAGER ID: [phone] MESSAGE: [id number] Edel Sue- Allergy to Tylenol. Other pain med order? Mellissa [id number]
--- NOTE | 2021-01-08 14:22 | NUR ---
Patient in room PCU 3017. I have received report from Mellissa HART and had the opportunity to ask questions and assume patient care.
[2021-01-08] MEDS: vancomycin/NS 1 GM ADD-VANTAGE 250 ML IV SCH (14:30)
--- NOTE | 2021-01-08 14:30 | NUR ---
Problems reprioritized. Patient report given, questions answered & plan of care reviewed with Randa HART.
--- NOTE | 2021-01-08 18:19 | NUR ---
Patient in room [facility] 352. I have received report from Randa Mendez and had the opportunity to ask questions and assume patient care.
--- NOTE | 2021-01-08 18:26 | NUR ---
Problems reprioritized. Patient report given, questions answered & plan of care reviewed with Ana castro.
[2021-01-08] MEDS: oxyCODONE IR 5mg (immed. release) tablet PO PRN ×2 (18:33→23:17)
[2021-01-08 19:00] VITALS: BP 139/70
[2021-01-08] MEDS: ZINC/COPPER/MANGANESE/SELENIUM 1 ML, chromic chloride inj. 10 MCG in AA 5%/CALCIUM/LYTE... IV SCH (19:53)
[2021-01-08] MEDS: fat emulsion IV bag 250 ML IV SCH (19:54)
[2021-01-08] MEDS: enoxaparin 40mg/0.4ml syringe SQ SCH (20:29)
[2021-01-08] MEDS: insulin glargine (Lantus) pen - multi-dose SQ SCH (20:58)
[2021-01-09] VITALS: BP 134/65
[2021-01-09] MEDS: insulin regular, human U-100 3ml vial - multi-dose SQ SCH ×4 (02:28→20:48)
[2021-01-09] MEDS: oxyCODONE IR 5mg (immed. release) tablet PO PRN (04:15)
[2021-01-09] MEDS: ondansetron/PF 4mg/2ml inj IV PRN (04:34)
[2021-01-09 06:01] LABS: EOSINOPHILS # (AUTO) 0.1 X10'3 (0-0.9); MEAN PLATELET VOLUME 6.9 FL (7.4-10.4); MONOCYTES # (AUTO) 1.6 X10'3 (0-0.9)
[2021-01-09 06:04] LABS: BASOPHILS % (AUTO) 0.2 % (0-1); EOSINOPHILS % (AUTO) 0.4 % (0-6); HEMATOCRIT 31.1 % (35.0-45.0); HEMOGLOBIN 10.4 g/dl (12.0-16.0); LYMPHOCYTES % (AUTO) 5.3 % (21-51); MEAN CORPUSCULAR HGB CONC 33.5 g/dL (33.0-36.5); MEAN CORPUSCULAR VOLUME 83.3 FL (78-98); MONOCYTES % (AUTO) 8.2 % (2-12); NEUTROPHILS % (AUTO) 85.9 % (42-75); PLATELET COUNT 280 X10'3 (140-440); RED BLOOD COUNT 3.73 X10'6 (4.20-5.60); RED CELL DISTRIBUTION WIDTH 19.9 % (11.5-14.5); WHITE BLOOD COUNT 19.8 X10'3 (4.5-11.0)
[2021-01-09 06:18] LABS: ALANINE AMINOTRANSFERASE 22 U/L (12-78); ALBUMIN 1.5 G/DL (3.4-5.0); ALBUMIN/GLOBULIN RATIO 0.3 (1.1-1.5); ALKALINE PHOSPHATASE 75 IU/L (46-116); ANION GAP 8 (8-16); ASPARTATE AMINO TRANSFERASE 20 U/L (10-37); BILIRUBIN,TOTAL 0.2 MG/DL (0.1-1.0); BLOOD UREA NITROGEN 14 MG/DL (7-18); BUN/CREATININE RATIO 31.1 (6.6-38.0); CALCIUM 8.5 MG/DL (8.5-10.1); CHLORIDE 105 MMOL/L (99-107); CREATININE 0.45 MG/DL (0.40-0.90); GLUCOSE 131 MG/DL (70-104); PHOSPHORUS 3.8 MG/DL (2.3-4.5); POTASSIUM 3.1 MMOL/L (3.5-5.1); SODIUM 140 MMOL/L (135-145); TOTAL CARBON DIOXIDE 26.6 MMOL/L (24-32); TOTAL PROTEIN 5.9 G/DL (6.4-8.2); TRIGLYCERIDES 35 MG/DL (20-135); eGFR > 90 ML/MIN
--- NOTE | 2021-01-09 06:30 | NUR ---
Problems reprioritized. Patient report given, questions answered & plan of care reviewed with Randa HART.
[2021-01-09] MEDS: proCHLORperazine 10 MG/2 ml inj IV PRN ×2 (06:31→14:45)
[2021-01-09] MEDS: lactose-reduced food (Ensure High Protein) 237ml bottle PO SCH ×2 (07:30→17:43)
[2021-01-09] MEDS ORDERED: albumin (human) 25% 100 ML IV solution IV ONE ×2 (07:35→15:10)
[2021-01-09] MEDS ORDERED: potassium Cl 20 mEq SR tablet PO PRN (07:40)
[2021-01-09] MEDS ORDERED: potassium Cl 40MEQ/1/2NS 520ml 520 ML IV PRN ×3 (07:40→09:05)
--- NOTE | 2021-01-09 07:48 | NUR ---
Received report and assumed care of Pt from Randa HART
[2021-01-09 08:00] VITALS: BP 160/75
[2021-01-09] MEDS: K and/or MAG REPLACEMENT MC SCH ×2 (08:00→22:27)
[2021-01-09] MEDS: metroNIDAZOLE-Flagyl 500mg/NS 100 ML IV SCH ×2 (08:30→17:22)
[2021-01-09] MEDS: hydrocortisone sod succ/PF 100mg/2ml inj. IV SCH ×3 (08:30→23:56)
[2021-01-09] MEDS: lactobacillus rhamnosus 10,000 MMU CELLS/CAPSULE PO SCH ×2 (08:33→19:35)
[2021-01-09] MEDS: ferrous sulfate 325mg tablet PO SCH ×2 (08:35→08:52)
[2021-01-09] MEDS: multivitamins, therapeutics tablet PO SCH (08:35)
[2021-01-09] MEDS: FINASTERIDE 1 MG PO SCH (08:36)
[2021-01-09] MEDS: enoxaparin 40mg/0.4ml syringe SQ SCH ×2 (08:48→19:35)
[2021-01-09] MEDS: morphine 2 MG/ML inj. syringe IV PRN ×4 (08:56→23:48)
[2021-01-09 09:57] LABS: TOTAL CELLS COUNTED 100
[2021-01-09 09:58] LABS: ANISOCYTOSIS 2+; BURR CELLS 2+; PLATELET ESTIMATE NORMAL
--- NOTE | 2021-01-09 10:15 | NUR ---
pt only has PICC on left arm with 3 lumens. 2 have TPN and lipids running. the other has Flagyl at the moment. Attempted to place IV and was unsuccessful. paged PICC nurse pt needs another IV access to give albumin, potassium, and Antibiotics. will give when able
--- NOTE | 2021-01-09 10:56 | NUR ---
Ileostomy consult: Provided pt w/ written and verbal nutrition and ostomy education w/ RD contact info. Pt receptive of information. Addendum: 01/09/21 at [address] Amended: Links added.
[2021-01-09 11:00] VITALS: BP 164/85
[2021-01-09] MEDS: CefTRIAXone/D5W-Rocephin 1gm 50 ML IV SCH (12:02)
--- NOTE | 2021-01-09 12:28 | NUR ---
as clinical instructor, i reviewed student nurse documentation
[2021-01-09] MEDS: vancomycin/NS 1 GM ADD-VANTAGE 250 ML IV SCH (13:36)
--- NOTE | 2021-01-09 13:52 | NUR ---
K replacement can be run y site with angel luis per pharmacist.
[2021-01-09] MEDS ORDERED: albumin (human) 25% 100ml IV 200 ML IV ONE ×2 (15:25→19:00)
--- NOTE | 2021-01-09 15:38 | NUR ---
Wound care to see patient today regarding ostomy teaching. Patient alert but distracted with nausea and pain. I was able to talk to her about some of the important things to know like changing the bag when it is leaking, emptying it when it is half full, and the need to take in lot of fluids. She seems responsive to understanding this information. An information packet given to her as well. She states her son will help her and he can help with any need for resources on the internet. Wound care to do a bag change with her this week. Addendum: 01/09/21 at 1548 by Netta Urrutia RN Amended: Links added.
--- NOTE | 2021-01-09 16:11 | NUR ---
PICC nurse placed new IV, I went to flush IV to hang albumin. The IV infiltrated and is no good. PICC nurse made aware and will come up and try again.
--- NOTE | 2021-01-09 16:22 | NUR ---
waiting for vancomycin to finish in order to hang flagyl, then i will hang albumin, and then op Addendum: 01/09/21 at 1628 by Randa Fernandez RN waiting for vancomycin to finish in order to hang flagyl, then i will hang albumin, and then potassium. I am unable to hang much due to the pt having TPN running in one lumen of the PICC to the left arm and then one lumen free to run the rest of the pts IV medications. PICC nurse was paged earlier and was successful of an IV around 1500. Pt IV infiltrated when i went to hang the albumin after flushing. I let PICC nurse know when she called up here at about 1600 pt IV had infiltrated, she stated she will be coming up here to do another IV after she was done with her current task. Will wait to adminster rest
--- NOTE | 2021-01-09 17:54 | NUR ---
PICC Tita came and did second attempt on IV after first one infiltrated. I went in to flush IV to get albumin started, IV infiltrated again. I will inform restaurant shift leader that they will need to do the K replacement and hang albumin.
[2021-01-09 18:00] VITALS: BP 154/71
--- NOTE | 2021-01-09 18:40 | NUR ---
Patient in room [facility] 352. I have received report from Randa HART and had the opportunity to ask questions and assume patient care.
--- NOTE | 2021-01-09 18:40 | NUR ---
Problems reprioritized. Patient report given, questions answered & plan of care reviewed with Ana castro.
[2021-01-09] MEDS: ZINC/COPPER/MANGANESE/SELENIUM 1 ML, chromic chloride inj. 10 MCG in AA 5%/CALCIUM/LYTE... IV SCH (19:36)
[2021-01-09] MEDS: fat emulsion IV bag 250 ML IV SCH (19:36)
[2021-01-09] MEDS: insulin glargine (Lantus) pen - multi-dose SQ SCH (22:38)
[2021-01-09 23:50] VITALS: BP 140/61
[2021-01-10] MEDS: metroNIDAZOLE-Flagyl 500mg/NS 100 ML IV SCH ×4 (00:04→23:48)
--- NOTE | 2021-01-10 02:26 | NUR ---
0210 Blood sugar check revealed low at 55. Re-checked on opposite hand and was 48. Dextrose given via picc line. Will recheck in 15mins.
--- NOTE | 2021-01-10 02:42 | NUR ---
Accu check now 173. Will recheck in an hour.
--- NOTE | 2021-01-10 03:50 | NUR ---
Blood sugar now 153. Calculated insulin coverage for 6 units (level 2 x 4 hours) .
[2021-01-10] MEDS: insulin regular, human U-100 3ml vial - multi-dose SQ SCH ×3 (04:22→19:56)
[2021-01-10] MEDS: proCHLORperazine 10 MG/2 ml inj IV PRN ×2 (04:30→11:06)
[2021-01-10] MEDS: morphine 2 MG/ML inj. syringe IV PRN ×3 (04:31→16:25)
--- NOTE | 2021-01-10 05:30 | NUR ---
24 hour urea collection completed. Bottle given to lab.
[2021-01-10 05:57] LABS: BASOPHILS # (AUTO) 0.1 X10'3 (0-0.2); BASOPHILS % (AUTO) 0.5 % (0-1); EOSINOPHILS % (AUTO) 0 % (0-6); HEMATOCRIT 30.6 % (35.0-45.0); HEMOGLOBIN 10.2 g/dl (12.0-16.0); LYMPHOCYTES # (AUTO) 0.7 X10'3 (1.1-4.8); LYMPHOCYTES % (AUTO) 3.9 % (21-51); MEAN CORPUSCULAR HEMOGLOBIN 28.1 PG (27.0-31.0); MEAN CORPUSCULAR HGB CONC 33.3 g/dL (33.0-36.5); MEAN CORPUSCULAR VOLUME 84.2 FL (78-98); MEAN PLATELET VOLUME 6.3 FL (7.4-10.4); MONOCYTES # (AUTO) 1.3 X10'3 (0-0.9); NEUTROPHILS # (AUTO) 16.3 X10'3 (1.8-7.7); NEUTROPHILS % (AUTO) 88.6 % (42-75); PLATELET COUNT 269 X10'3 (140-440); RED BLOOD COUNT 3.64 X10'6 (4.20-5.60); WHITE BLOOD COUNT 18.4 X10'3 (4.5-11.0)
[2021-01-10 06:25] LABS: ALANINE AMINOTRANSFERASE 17 U/L (12-78); ALBUMIN 2.4 G/DL (3.4-5.0); ALBUMIN/GLOBULIN RATIO 0.6 (1.1-1.5); ALKALINE PHOSPHATASE 106 IU/L (46-116); ANION GAP 12 (8-16); ASPARTATE AMINO TRANSFERASE 24 U/L (10-37); BILIRUBIN,TOTAL 0.4 MG/DL (0.1-1.0); BLOOD UREA NITROGEN 13 MG/DL (7-18); BUN/CREATININE RATIO 27.1 (6.6-38.0); CALCIUM 8.5 MG/DL (8.5-10.1); CHLORIDE 104 MMOL/L (99-107); CREATININE 0.48 MG/DL (0.40-0.90); GLUCOSE 165 MG/DL (70-104); POTASSIUM 3.3 MMOL/L (3.5-5.1); SODIUM 139 MMOL/L (135-145); TOTAL CARBON DIOXIDE 23.2 MMOL/L (24-32); TOTAL PROTEIN 6.2 G/DL (6.4-8.2); eGFR > 90 ML/MIN
--- NOTE | 2021-01-10 06:40 | NUR ---
Problems reprioritized. Patient report given, questions answered & plan of care reviewed with Salma HART. visited this AM to check on pts' status.
[2021-01-10 07:00] VITALS: BP 152/70
[2021-01-10] MEDS ORDERED: normal saline 1000ml 1,000 ML IV SCH (07:05)
[2021-01-10] MEDS: lactose-reduced food (Ensure High Protein) 237ml bottle PO SCH ×2 (07:30→17:58)
[2021-01-10] MEDS: MESSAGE TO NURSING IV SCH (08:00)
[2021-01-10] MEDS: K and/or MAG REPLACEMENT MC SCH ×2 (08:00→20:00)
[2021-01-10] MEDS: FINASTERIDE 1 MG PO SCH (08:21)
[2021-01-10] MEDS: hydrocortisone sod succ/PF 100mg/2ml inj. IV SCH ×3 (08:21→23:48)
[2021-01-10] MEDS: multivitamins, therapeutics tablet PO SCH (08:21)
[2021-01-10] MEDS: ferrous sulfate 325mg tablet PO SCH (08:21)
[2021-01-10] MEDS: enoxaparin 40mg/0.4ml syringe SQ SCH ×2 (08:23→19:25)
[2021-01-10 08:29] LABS: UREA NITROGEN 24HR,URINE 9.5 GM/24HR (7-20)
[2021-01-10 09:30] LABS: ANISOCYTOSIS 2+; PLATELET ESTIMATE NORMAL; TOTAL CELLS COUNTED 100
[2021-01-10 09:31] LABS: BURR CELLS 2+; SCHISTOCYTES FEW
--- NOTE | 2021-01-10 10:51 | NUR ---
Paged PICC RN
[2021-01-10 11:00] VITALS: BP 154/72
[2021-01-10] MEDS: CefTRIAXone/D5W-Rocephin 1gm 50 ML IV SCH (11:05)
[2021-01-10] MEDS: normal saline 500ml IV soln 500 ML IV SCH (11:17)
--- NOTE | 2021-01-10 12:36 | NUR ---
Left a message for wound care for consult on new ileostomy bag
[2021-01-10 13:02] LABS: MAGNESIUM 1.7 MG/DL (1.5-2.4)
--- NOTE | 2021-01-10 13:10 | NUR ---
2nd page to PICC RN
[2021-01-10] MEDS ORDERED: VANCOMYCIN LEVEL IV ONE (13:30)
--- NOTE | 2021-01-10 14:35 | NUR ---
Reassessment: Pt continues on clear liquid diet documented with 25% PO intake up to 100% PO intake at dinner 01/08 though with 0% PO intake all of 01/09. Patient's estimated nutrient needs continue to be met with TPN. LBM 01/09 documented with 760 mL stool output per I&O. No changes to nutrition interventions at this time. Will continue to follow. Recommendations: 1) Advance to low fiber/gluten free diet as medically indicated 2) Resume Ensure High Protein BIDBD once diet is advanced from clear liquids post-op 3) Continuous TPN using 2:1 Clinimix-E 07/21 with 60 mL/hr goal rate with additional 100 mL 20% intralipids to run at 8.33 mL/hr for 12 hours/day to provide 1540 mL total volume/day, 1467 kcal, 72 g AA, and 288 g dext (4.52 mg/kg/min dext load), and 20 g lipids 4) Prealbumin and TG q Saturday/ 5) Daily scaled weights 6) Bowel care per MD Addendum: 01/10/21 at [address] Amended: Links added.
[2021-01-10] MEDS: vancomycin/NS 1 GM ADD-VANTAGE 250 ML IV SCH (15:11)
--- NOTE | 2021-01-10 19:06 | NUR ---
Patient in room [facility] 352. I have received report from Salma HART and had the opportunity to ask questions and assume patient care.
--- NOTE | 2021-01-10 19:13 | NUR ---
Patient in room [facility] 352. I have received report from TANNER Marhs and had the opportunity to ask questions and assume patient care.
--- NOTE | 2021-01-10 19:17 | NUR ---
Problems reprioritized. Patient report given, questions answered & plan of care reviewed with Celia HART.
[2021-01-10] MEDS: ZINC/COPPER/MANGANESE/SELENIUM 1 ML, chromic chloride inj. 10 MCG in AA 5%/CALCIUM/LYTE... IV SCH (19:27)
[2021-01-10] MEDS: fat emulsion IV bag 250 ML IV SCH (19:28)
[2021-01-10 20:00] VITALS: BP 166/78
[2021-01-10] MEDS: oxyCODONE IR 5mg (immed. release) tablet PO PRN (20:02)
[2021-01-10] MEDS: insulin glargine (Lantus) pen - multi-dose SQ SCH (22:05)
[2021-01-11 00:10] VITALS: BP 149/75
[2021-01-11] MEDS: vancomycin/NS 1 GM ADD-VANTAGE 250 ML IV SCH ×2 (02:54→14:30)
[2021-01-11] MEDS: insulin regular, human U-100 3ml vial - multi-dose SQ SCH ×4 (03:05→21:55)
[2021-01-11] MEDS: oxyCODONE IR 5mg (immed. release) tablet PO PRN ×3 (04:39→21:21)
[2021-01-11] MEDS: normal saline 500ml IV soln 500 ML IV SCH (04:40)
[2021-01-11 05:43] LABS: BASOPHILS % (AUTO) 0.2 % (0-1); EOSINOPHILS % (AUTO) 0.1 % (0-6); HEMATOCRIT 28.9 % (35.0-45.0); HEMOGLOBIN 9.7 g/dl (12.0-16.0); LYMPHOCYTES # (AUTO) 1.2 X10'3 (1.1-4.8); LYMPHOCYTES % (AUTO) 7.4 % (21-51); MEAN CORPUSCULAR HGB CONC 33.5 g/dL (33.0-36.5); MEAN CORPUSCULAR VOLUME 83.7 FL (78-98); MEAN PLATELET VOLUME 6.4 FL (7.4-10.4); MONOCYTES # (AUTO) 1.3 X10'3 (0-0.9); NEUTROPHILS # (AUTO) 13.9 X10'3 (1.8-7.7); NEUTROPHILS % (AUTO) 84.3 % (42-75); PLATELET COUNT 314 X10'3 (140-440); RED BLOOD COUNT 3.45 X10'6 (4.20-5.60); RED CELL DISTRIBUTION WIDTH 20.2 % (11.5-14.5); WHITE BLOOD COUNT 16.5 X10'3 (4.5-11.0)
[2021-01-11 06:25] LABS: ANISOCYTOSIS 3+; BURR CELLS 1+; PLATELET ESTIMATE NORMAL; TOTAL CELLS COUNTED 100
--- NOTE | 2021-01-11 06:36 | NUR ---
Problems reprioritized. Patient report given, questions answered & plan of care reviewed with TANNER Ward.
[2021-01-11 06:37] LABS: ALANINE AMINOTRANSFERASE 17 U/L (12-78); ALBUMIN/GLOBULIN RATIO 0.5 (1.1-1.5); ALKALINE PHOSPHATASE 76 IU/L (46-116); ANION GAP 7 (8-16); ASPARTATE AMINO TRANSFERASE 14 U/L (10-37); BILIRUBIN,TOTAL 0.3 MG/DL (0.1-1.0); BLOOD UREA NITROGEN 13 MG/DL (7-18); BUN/CREATININE RATIO 27.1 (6.6-38.0); CALCIUM 8.1 MG/DL (8.5-10.1); CHLORIDE 105 MMOL/L (99-107); CREATININE 0.48 MG/DL (0.40-0.90); GLUCOSE 144 MG/DL (70-104); SODIUM 139 MMOL/L (135-145); TOTAL PROTEIN 5.7 G/DL (6.4-8.2); eGFR > 90 ML/MIN
[2021-01-11 06:44] LABS: POTASSIUM 2.9 MMOL/L (3.5-5.1)
--- NOTE | 2021-01-11 06:59 | NUR ---
Problems reprioritized. Patient report given, questions answered & plan of care reviewed with Sylvia HART.
--- NOTE | 2021-01-11 06:59 | NUR ---
Student documentation: I have reviewed and agree with all interventions, assessments performed and documented by Kristofer Shelby STate student.
[2021-01-11 07:23] VITALS: BP 108/66
[2021-01-11] MEDS: lactose-reduced food (Ensure High Protein) 237ml bottle PO SCH ×2 (07:30→19:30)
[2021-01-11] MEDS: K and/or MAG REPLACEMENT MC SCH ×2 (08:00→20:00)
[2021-01-11] MEDS: MESSAGE TO NURSING IV SCH (08:00)
[2021-01-11] MEDS: CefTRIAXone/D5W-Rocephin 1gm 50 ML IV SCH ×2 (08:00→09:00)
[2021-01-11] MEDS ORDERED: MESSAGE TO NURSING IV ONE (08:00)
[2021-01-11] MEDS: FINASTERIDE 1 MG PO SCH ×2 (08:00→09:00)
[2021-01-11] MEDS: enoxaparin 40mg/0.4ml syringe SQ SCH ×2 (09:00→21:49)
[2021-01-11] MEDS: metroNIDAZOLE-Flagyl 500mg/NS 100 ML IV SCH ×2 (09:00→16:32)
[2021-01-11] MEDS: multivitamins, therapeutics tablet PO SCH (09:00)
[2021-01-11] MEDS: ferrous sulfate 325mg tablet PO SCH (09:00)
[2021-01-11] MEDS: hydrocortisone sod succ/PF 100mg/2ml inj. IV SCH ×2 (09:10→16:34)
[2021-01-11 11:00] VITALS: BP 157/79
--- NOTE | 2021-01-11 11:16 | NUR ---
All morning meds were given, scanned, admin and saved, but error after saved by computer. Went in and admin on EMR to reflect adminsitration at 0900. No Ensure on pt's tray and 0530 pain assessment was not perform or given on day shift.
--- NOTE | 2021-01-11 18:30 | NUR ---
Patient in room [facility] 352. I have received report from TANNER Ward and had the opportunity to ask questions and assume patient care. Addendum: 01/12/21 at 0159 by Aislinn Kenny RN Amended: Links added.
[2021-01-11 19:30] VITALS: BP 120/72
[2021-01-11] MEDS: fat emulsion IV bag 250 ML IV SCH (21:25)
[2021-01-11] MEDS: insulin glargine (Lantus) pen - multi-dose SQ SCH (21:53)
[2021-01-12] VITALS: BP 150/73
[2021-01-12] MEDS: metroNIDAZOLE-Flagyl 500mg/NS 100 ML IV SCH ×2 (00:59→08:22)
[2021-01-12] MEDS: hydrocortisone sod succ/PF 100mg/2ml inj. IV SCH ×3 (00:59→16:45)
[2021-01-12] MEDS ORDERED: VANCOMYCIN LEVEL IV ONE (01:30)
[2021-01-12] MEDS: normal saline 500ml IV soln 500 ML IV SCH (02:19)
[2021-01-12] MEDS: oxyCODONE IR 5mg (immed. release) tablet PO PRN ×5 (02:19→21:14)
[2021-01-12] MEDS: ZINC/COPPER/MANGANESE/SELENIUM 1 ML, chromic chloride inj. 10 MCG in AA 5%/CALCIUM/LYTE... IV SCH ×2 (02:20→20:49)
[2021-01-12] MEDS: vancomycin/NS 1 GM ADD-VANTAGE 250 ML IV SCH (02:40)
[2021-01-12] MEDS: insulin regular, human U-100 3ml vial - multi-dose SQ SCH (02:46)
--- NOTE | 2021-01-12 02:47 | NUR ---
labs drawn Addendum: 01/12/21 at 0250 by Aislinn Kenny RN Amended: Links added.
[2021-01-12 03:22] LABS: EOSINOPHILS # (AUTO) 0.1 X10'3 (0-0.9); HEMOGLOBIN 10.8 g/dl (12.0-16.0); LYMPHOCYTES # (AUTO) 1.7 X10'3 (1.1-4.8); NEUTROPHILS # (AUTO) 19.7 X10'3 (1.8-7.7)
[2021-01-12 03:23] LABS: BASOPHILS # (AUTO) 0.1 X10'3 (0-0.2); BASOPHILS % (AUTO) 0.2 % (0-1); EOSINOPHILS % (AUTO) 0.3 % (0-6); LYMPHOCYTES % (AUTO) 7.2 % (21-51); MEAN CORPUSCULAR HEMOGLOBIN 27.6 PG (27.0-31.0); MEAN CORPUSCULAR HGB CONC 32.8 g/dL (33.0-36.5); MEAN CORPUSCULAR VOLUME 84.2 FL (78-98); MEAN PLATELET VOLUME 6.7 FL (7.4-10.4); MONOCYTES # (AUTO) 2.2 X10'3 (0-0.9); MONOCYTES % (AUTO) 9.4 % (2-12); NEUTROPHILS % (AUTO) 82.9 % (42-75); PLATELET COUNT 398 X10'3 (140-440); RED BLOOD COUNT 3.92 X10'6 (4.20-5.60); RED CELL DISTRIBUTION WIDTH 20.2 % (11.5-14.5); WHITE BLOOD COUNT 23.8 X10'3 (4.5-11.0)
[2021-01-12 03:38] LABS: ALANINE AMINOTRANSFERASE 16 U/L (12-78); ALBUMIN/GLOBULIN RATIO 0.5 (1.1-1.5); ALKALINE PHOSPHATASE 85 IU/L (46-116); ANION GAP 6 (8-16); ASPARTATE AMINO TRANSFERASE 14 U/L (10-37); BILIRUBIN,TOTAL 0.2 MG/DL (0.1-1.0); BLOOD UREA NITROGEN 15 MG/DL (7-18); BUN/CREATININE RATIO 31.3 (6.6-38.0); CALCIUM 8.1 MG/DL (8.5-10.1); CHLORIDE 101 MMOL/L (99-107); CREATININE 0.48 MG/DL (0.40-0.90); GLUCOSE 104 MG/DL (70-104); PHOSPHORUS 3.7 MG/DL (2.3-4.5); POTASSIUM 3.6 MMOL/L (3.5-5.1); SODIUM 133 MMOL/L (135-145); TOTAL CARBON DIOXIDE 26.2 MMOL/L (24-32); TOTAL PROTEIN 5.9 G/DL (6.4-8.2); TRIGLYCERIDES 37 MG/DL (20-135); eGFR > 90 ML/MIN
[2021-01-12 03:39] LABS: VANCOMYCIN,TROUGH 9.4 UG/ML (6.0-14.0)
[2021-01-12 05:09] LABS: TOTAL CELLS COUNTED 100
[2021-01-12 05:12] LABS: ANISOCYTOSIS 3+; BURR CELLS 1+; PLATELET ESTIMATE NORMAL
--- NOTE | 2021-01-12 06:00 | NUR ---
Patient in room [facility] 352. I have received report from Lela HART and had the opportunity to ask questions and assume patient care.
--- NOTE | 2021-01-12 06:42 | NUR ---
Problems reprioritized. Patient report given, questions answered & plan of care reviewed with TANNER Ward. Addendum: 01/12/21 at 0642 by Aislinn Kenny RN Amended: Links added.
[2021-01-12 07:00] VITALS: BP 147/69
[2021-01-12] MEDS: lactose-reduced food (Ensure High Protein) 237ml bottle PO SCH ×2 (07:30→17:30)
[2021-01-12] MEDS: K and/or MAG REPLACEMENT MC SCH ×2 (08:00→20:00)
[2021-01-12] MEDS: MESSAGE TO NURSING IV SCH (08:00)
[2021-01-12] MEDS: multivitamins, therapeutics tablet PO SCH (08:18)
[2021-01-12] MEDS: ferrous sulfate 325mg tablet PO SCH (08:18)
[2021-01-12] MEDS: enoxaparin 40mg/0.4ml syringe SQ SCH ×2 (08:19→20:47)
[2021-01-12] MEDS: FINASTERIDE 1 MG PO SCH (08:19)
[2021-01-12] MEDS: CefTRIAXone/D5W-Rocephin 1gm 50 ML IV SCH (08:22)
--- NOTE | 2021-01-12 11:50 | NUR ---
F/u: RN requests RD visit to pt regarding food preferences while on the floor. Per RN; pt advancing to low-residue diet for dinner tonight up from current full liquids w/ TPN halved to 30ml/hr per surgeon. Pt seen by RD reports dislikes rice, coffee, and beef; requests decaf tea w/ meals and soft to chew foods. Dietary notified of preferences. Recommendations: 1) Advance to low fiber/gluten free diet as medically indicated; honor pt food preferences see subjective 2) Resume Ensure High Protein BIDBD now advanced from clear liquids 3) Continuous TPN using 2:1 Clinimix-E 5/ with 60 mL/hr goal rate with additional 100 mL 20% intralipids to run at 8.33 mL/hr for 12 hours/day to provide 1540 mL total volume/day, 1467 kcal, 72 g AA, and 288 g dext (4.52 mg/kg/min dext load), and 20 g lipids 4) wean PN as medically indicated w/ PO diet advancement per MD 5) Prealbumin and TG q Saturday/; Daily scaled weights 6) Bowel care per MD Addendum: 01/12/21 at [address] Amended: Links added.
[2021-01-12 12:00] VITALS: BP 148/77
[2021-01-12] MEDS: VANCOmycin 1250MG/NS 250ml Bag 250 ML IV SCH (14:27)
[2021-01-12 18:00] VITALS: BP 137/67
--- NOTE | 2021-01-12 18:00 | NUR ---
Student documentation: I have reviewed and agree with all interventions, assessments performed and documented by Vickie Cutler [employer] [facility] student.
--- NOTE | 2021-01-12 18:15 | NUR ---
Problems reprioritized. Patient report given, questions answered & plan of care reviewed with Jelani HART Traveler.
--- NOTE | 2021-01-12 18:41 | NUR ---
Problems reprioritized. Patient report given, questions answered & plan of care reviewed with TANNER Palomares traveler.
[2021-01-12] MEDS: temazepam 15mg capsule PO PRN (20:47)
[2021-01-12] MEDS: fat emulsion IV bag 250 ML IV SCH (20:48)
[2021-01-12] MEDS: insulin glargine (Lantus) pen - multi-dose SQ SCH (21:00)
[2021-01-12 22:00] VITALS: BP 133/66
[2021-01-13] MEDS: oxyCODONE IR 5mg (immed. release) tablet PO PRN ×3 (01:03→21:58)
[2021-01-13] MEDS: hydrocortisone sod succ/PF 100mg/2ml inj. IV SCH ×3 (01:04→16:26)
[2021-01-13] MEDS: VANCOmycin 1250MG/NS 250ml Bag 250 ML IV SCH ×2 (01:38→14:25)
[2021-01-13] MEDS: mag hydrox/Alum hydrox/simeth 30ml oral suspension PO PRN ×2 (03:05→21:59)
[2021-01-13] MEDS: morphine 2 MG/ML inj. syringe IV PRN ×2 (03:05→08:30)
[2021-01-13 06:26] LABS: BASOPHILS % (AUTO) 0.1 % (0-1); EOSINOPHILS # (AUTO) 0.1 X10'3 (0-0.9); EOSINOPHILS % (AUTO) 0.3 % (0-6); HEMATOCRIT 33.8 % (35.0-45.0); HEMOGLOBIN 11.2 g/dl (12.0-16.0); LYMPHOCYTES # (AUTO) 1.6 X10'3 (1.1-4.8); LYMPHOCYTES % (AUTO) 7.9 % (21-51); MEAN CORPUSCULAR HEMOGLOBIN 28.1 PG (27.0-31.0); MEAN CORPUSCULAR HGB CONC 33.3 g/dL (33.0-36.5); MEAN CORPUSCULAR VOLUME 84.5 FL (78-98); MEAN PLATELET VOLUME 6.7 FL (7.4-10.4); MONOCYTES # (AUTO) 1.7 X10'3 (0-0.9); MONOCYTES % (AUTO) 8.2 % (2-12); NEUTROPHILS # (AUTO) 17.4 X10'3 (1.8-7.7); NEUTROPHILS % (AUTO) 83.5 % (42-75); PLATELET COUNT 435 X10'3 (140-440); RED BLOOD COUNT 3.99 X10'6 (4.20-5.60); RED CELL DISTRIBUTION WIDTH 20.3 % (11.5-14.5); WHITE BLOOD COUNT 20.8 X10'3 (4.5-11.0)
--- NOTE | 2021-01-13 06:42 | NUR ---
Patient in room [facility] 352. I have received report from TANNER Palomares and had the opportunity to ask questions and assume patient care.
[2021-01-13 06:46] LABS: ANISOCYTOSIS 3+; PLATELET ESTIMATE NORMAL; TOTAL CELLS COUNTED 100
[2021-01-13 06:47] LABS: POIKILOCYTOSIS FEW
[2021-01-13 06:56] LABS: ALANINE AMINOTRANSFERASE 19 U/L (12-78); ALBUMIN 2.2 G/DL (3.4-5.0); ALBUMIN/GLOBULIN RATIO 0.6 (1.1-1.5); ALKALINE PHOSPHATASE 76 IU/L (46-116); ANION GAP 8 (8-16); ASPARTATE AMINO TRANSFERASE 16 U/L (10-37); BILIRUBIN,TOTAL 0.3 MG/DL (0.1-1.0); BLOOD UREA NITROGEN 12 MG/DL (7-18); C-REACTIVE PROTEIN 3.15 MG/DL (0.0-0.5); CALCIUM 8.2 MG/DL (8.5-10.1); CHLORIDE 102 MMOL/L (99-107); GLUCOSE 141 MG/DL (70-104); POTASSIUM 3.4 MMOL/L (3.5-5.1); SODIUM 137 MMOL/L (135-145); TOTAL CARBON DIOXIDE 26.7 MMOL/L (24-32); TOTAL PROTEIN 6.2 G/DL (6.4-8.2); eGFR > 90 ML/MIN
[2021-01-13] MEDS: lactose-reduced food (Ensure High Protein) 237ml bottle PO SCH ×2 (07:30→18:29)
[2021-01-13] MEDS: MESSAGE TO NURSING IV SCH (08:00)
[2021-01-13] MEDS: FINASTERIDE 1 MG PO SCH (08:00)
[2021-01-13] MEDS: multivitamins, therapeutics tablet PO SCH (08:00)
[2021-01-13] MEDS: K and/or MAG REPLACEMENT MC SCH ×2 (08:00→20:00)
[2021-01-13] MEDS: ferrous sulfate 325mg tablet PO SCH (08:31)
[2021-01-13] MEDS: CefTRIAXone/D5W-Rocephin 1gm 50 ML IV SCH (08:31)
[2021-01-13] MEDS: enoxaparin 40mg/0.4ml syringe SQ SCH ×2 (08:32→21:58)
[2021-01-13] MEDS: potassium Cl 20 mEq SR tablet PO PRN ×3 (08:32→21:59)
[2021-01-13] MEDS ORDERED: LORazepam 0.5 MG tablet PO PRN (09:50)
--- NOTE | 2021-01-13 09:51 | NUR ---
Dr. Daly in to see patient and dc'd TPN.
[2021-01-13 12:00] VITALS: BP 134/83
[2021-01-13] MEDS: normal saline 500ml IV soln 500 ML IV SCH (14:26)
--- NOTE | 2021-01-13 18:15 | NUR ---
Student documentation: I have reviewed and agree with all interventions, assessments performed and documented by SN Susy. Student Medication Administration: For this medication-pass time frame, all medication were reviewed, dispensed, administered and documented per hospital policy by SN Susy.
--- NOTE | 2021-01-13 18:37 | NUR ---
Problems reprioritized. Patient report given, questions answered & plan of care reviewed with TANNER Campoverde.
[2021-01-13 20:00] VITALS: BP 131/68
[2021-01-13] MEDS ORDERED: lactobacillus rhamnosus 10,000 MMU CELLS/CAPSULE PO SCH (20:00)
[2021-01-13] MEDS: insulin glargine (Lantus) pen - multi-dose SQ SCH (21:00)
[2021-01-13] MEDS: temazepam 15mg capsule PO PRN (21:59)
[2021-01-14] VITALS: BP 143/72
[2021-01-14] MEDS: hydrocortisone sod succ/PF 100mg/2ml inj. IV SCH ×2 (01:10→07:12)
[2021-01-14] MEDS ORDERED: VANCOMYCIN LEVEL IV ONE (01:30)
[2021-01-14 02:01] LABS: BASOPHILS % (AUTO) 0.2 % (0-1); EOSINOPHILS # (AUTO) 0.1 X10'3 (0-0.9); EOSINOPHILS % (AUTO) 0.4 % (0-6); HEMATOCRIT 28.3 % (35.0-45.0); HEMOGLOBIN 9.4 g/dl (12.0-16.0); LYMPHOCYTES % (AUTO) 11.5 % (21-51); MEAN CORPUSCULAR HGB CONC 33.2 g/dL (33.0-36.5); MEAN CORPUSCULAR VOLUME 84.3 FL (78-98); MEAN PLATELET VOLUME 6.7 FL (7.4-10.4); MONOCYTES # (AUTO) 1.5 X10'3 (0-0.9); MONOCYTES % (AUTO) 8.6 % (2-12); NEUTROPHILS # (AUTO) 13.8 X10'3 (1.8-7.7); NEUTROPHILS % (AUTO) 79.3 % (42-75); PLATELET COUNT 444 X10'3 (140-440); RED BLOOD COUNT 3.36 X10'6 (4.20-5.60); WHITE BLOOD COUNT 17.4 X10'3 (4.5-11.0)
[2021-01-14 02:04] LABS: ALANINE AMINOTRANSFERASE 20 U/L (12-78); ALBUMIN/GLOBULIN RATIO 0.6 (1.1-1.5); ALKALINE PHOSPHATASE 76 IU/L (46-116); ANION GAP 5 (8-16); ASPARTATE AMINO TRANSFERASE 15 U/L (10-37); BILIRUBIN,TOTAL 0.2 MG/DL (0.1-1.0); BLOOD UREA NITROGEN 13 MG/DL (7-18); BUN/CREATININE RATIO 29.5 (6.6-38.0); CALCIUM 7.4 MG/DL (8.5-10.1); CHLORIDE 104 MMOL/L (99-107); CREATININE 0.44 MG/DL (0.40-0.90); GLUCOSE 95 MG/DL (70-104); SODIUM 136 MMOL/L (135-145); TOTAL CARBON DIOXIDE 27.4 MMOL/L (24-32); TOTAL PROTEIN 5.6 G/DL (6.4-8.2); eGFR > 90 ML/MIN
[2021-01-14 02:05] LABS: C-REACTIVE PROTEIN 3.27 MG/DL (0.0-0.5); VANCOMYCIN,TROUGH 15.4 UG/ML (6.0-14.0)
[2021-01-14] MEDS: VANCOmycin 1250MG/NS 250ml Bag 250 ML IV SCH (02:08)
[2021-01-14] MEDS: oxyCODONE IR 5mg (immed. release) tablet PO PRN ×3 (02:09→13:40)
[2021-01-14 03:33] LABS: ANISOCYTOSIS 3+; PLATELET ESTIMATE INCREASED; TOTAL CELLS COUNTED 100
--- NOTE | 2021-01-14 06:35 | NUR ---
Problems reprioritized. Patient report given, questions answered & plan of care reviewed with Yanely HART.
--- NOTE | 2021-01-14 06:55 | NUR ---
Patient in room [facility] 352. I have received report from nirmal castro and had the opportunity to ask questions and assume patient care.
[2021-01-14] MEDS: ferrous sulfate 325mg tablet PO SCH (07:10)
[2021-01-14] MEDS: multivitamins, therapeutics tablet PO SCH (07:11)
[2021-01-14] MEDS: enoxaparin 40mg/0.4ml syringe SQ SCH (07:13)
[2021-01-14] MEDS: CefTRIAXone/D5W-Rocephin 1gm 50 ML IV SCH (07:13)
[2021-01-14] MEDS: FINASTERIDE 1 MG PO SCH (07:17)
[2021-01-14] MEDS: MESSAGE TO NURSING IV SCH (07:33)
[2021-01-14] MEDS: lactose-reduced food (Ensure High Protein) 237ml bottle PO SCH (07:35)
[2021-01-14] MEDS: K and/or MAG REPLACEMENT MC SCH (07:37)
[2021-01-14 08:00] VITALS: BP 142/72
--- NOTE | 2021-01-14 09:19 | NUR ---
paged supportive employment case manager to see if patient needs covid swab prior to going to [facility]. Addendum: 01/14/21 at 0922 by Salma Fulton RN Per Ana patient does not need covid swab prior to discharge to [facility]
[2021-01-14 11:00] VITALS: BP 139/61
--- NOTE | 2021-01-14 14:24 | NUR ---
CALLED AND GAVE REPORT TO BLAIR HART AT [facility]. PT TRANSFERRED IN STABLE CONDITION AT 1425 VIA [facility]
== END 2021-01-14 15:08 | DRG 853 ==
LOC: ER 11:25 → ED HOLD 17:24 → PCU 3S 12-23 04:17 → ICU 2S 01-05 19:09 → PCU 3S 01-06 14:09 → SUR 3N 01-08 14:46
PROVIDERS: ADMIT Family Medicine; ATTEND Family Medicine
PROC: BW211ZZ Computerized Tomography (CT Scan) of Abdomen and Pelvis using Low Osmolar Contrast (ICD-10-PCS; 2020-12-22)
PROC: B32T1ZZ Computerized Tomography (CT Scan) of Left Pulmonary Artery using Low Osmolar Contrast (ICD-10-PCS; 2020-12-23)
PROC: B3201ZZ Computerized Tomography (CT Scan) of Thoracic Aorta using Low Osmolar Contrast (ICD-10-PCS; 2020-12-23)
PROC: B32S1ZZ Computerized Tomography (CT Scan) of Right Pulmonary Artery using Low Osmolar Contrast (ICD-10-PCS; 2020-12-23)
PROC: 02HV33Z Insertion of Infusion Device into Superior Vena Cava, Percutaneous Approach (ICD-10-PCS; 2020-12-27)
PROC: B548ZZA Ultrasonography of Superior Vena Cava, Guidance (ICD-10-PCS; 2020-12-27)
PROC: 30233N1 Transfusion of Nonautologous Red Blood Cells into Peripheral Vein, Percutaneous Approach (ICD-10-PCS; 2020-12-29)
PROC: 06H03DZ Insertion of Intraluminal Device into Inferior Vena Cava, Percutaneous Approach (ICD-10-PCS; 2020-12-30)
PROC: B5191ZZ Fluoroscopy of Inferior Vena Cava using Low Osmolar Contrast (ICD-10-PCS; 2020-12-30)
PROC: 0DTP4ZZ Resection of Rectum, Percutaneous Endoscopic Approach (ICD-10-PCS; 2021-01-05)
PROC: 0DNW4ZZ Release Peritoneum, Percutaneous Endoscopic Approach (ICD-10-PCS; 2021-01-05)
PROC: 0DTF4ZZ Resection of Right Large Intestine, Percutaneous Endoscopic Approach (ICD-10-PCS; principal; 2021-01-05 15:12)
DX: A41.9 Sepsis, unspecified organism (principal); E43 Unspecified severe protein-calorie malnutrition; K51.919 Ulcerative colitis, unspecified with unspecified complications; N39.0 Urinary tract infection, site not specified; I82.411 Acute embolism and thrombosis of right femoral vein; I82.431 Acute embolism and thrombosis of right popliteal vein; K56.609 Unspecified intestinal obstruction, unspecified as to partial versus complete obstruction; Z68.1 Body mass index [BMI] 19.9 or less, adult; E86.1 Hypovolemia; B96.20 Unspecified Escherichia coli [E. coli] as the cause of diseases classified elsewhere; K80.20 Calculus of gallbladder without cholecystitis without obstruction; R31.9 Hematuria, unspecified; D50.0 Iron deficiency anemia secondary to blood loss (chronic); E86.0 Dehydration; F32.A Depression, unspecified; Z79.52 Long term (current) use of systemic steroids; Z79.84 Long term (current) use of oral hypoglycemic drugs; Z86.718 Personal history of other venous thrombosis and embolism; Z90.710 Acquired absence of both cervix and uterus; Z88.0 Allergy status to penicillin; Z88.5 Allergy status to narcotic agent; Z79.899 Other long term (current) drug therapy; Z20.822 Contact with and (suspected) exposure to COVID-19
CPT/HCPCS: 36415; 36430; 36573; 37191; 71045; 71275; 74177; 76937; 80053; 80061; 80202; 81001; 82272; 82550; 82570; 82728; 82948; 83036; 83540; 83550; 83605; 83690; 83735; 83880; 84100; 84134; 84145; 84443; 84478; 84560; 85007; 85008; 85025; 85610; 85730; 86140; 86885; 86900; 86901; 86920; 87040; 87077; 87081; 87088; 87186; 87635; 88307; 93970; 96361; 96365; 96376; 97110; 97116; 97161; 97164; 97530; 97535; 99152; 99153; 99285; A4215; A4421; A4618; A4649; A6258; A6402; A6449; A7000; A9270; C1758; C1769; C1894; C9113; C9290; G0378; J0692; J0696; J0744; J0780; J1170; J1450; J1644; J1650; J1720; J1750; J1815; J1956; J2001; J2250; J2270; J2405; J2704; J2997; J3010; J3370; J3480; J3490; J7030; J7040; J7120; J7512; P9016; P9047; Q9967

== ENCOUNTER 2021-06-28 12:32 | Inpatient (IN) | payer MEDICARE ==
[~2021-06-28] VITALS: Ht 162.6 cm; Wt 56.8 kg
[~2021-06-28 12:32] MED LIST: BALS750C PO; FERR325T29 PO; FINA1TAB17 PO; LACT1CAP65 PO; METF-1203 PO; PRE5T PO
[2021-06-28] MEDS ORDERED: ondansetron/PF 4mg/2ml inj IM ONE (14:20)
[2021-06-28] MEDS ORDERED: morphine 4 MG/ML inj SYRINge IV ONE ×2 (14:20→15:30)
[2021-06-28] MEDS ORDERED: MULT-1085 PO (16:15)
[2021-06-28] MEDS ORDERED: CHOL100017 PO (16:15)
[2021-06-28] MEDS ORDERED: OXYB5TAB16 PO (16:15)
[2021-06-28] MEDS ORDERED: ALEN70TA80 PO (16:15)
[2021-06-28] MEDS ORDERED: FOLI1TAB27 PO (16:15)
[2021-06-28] MEDS ORDERED: FERR-39 PO (16:15)
[2021-06-28] MEDS ORDERED: mag hydrox/Alum hydrox/simeth 30ml oral suspension PO PRN (17:10)
[2021-06-28] MEDS ORDERED: morphine 2 MG/ML inj. syringe IV PRN (17:10)
[2021-06-28] MEDS ORDERED: magnesium 4gm in 100ml NS 100 ML IV PRN (17:10)
[2021-06-28] MEDS ORDERED: magnesium hydroxide 30ml (MOM) UD suspension PO PRN (17:10)
[2021-06-28] MEDS ORDERED: magnesium 2GM in 50ml NS 50 ML IV PRN (17:10)
[2021-06-28] MEDS ORDERED: metoclopramide 5 mg/ml inj IV PRN (17:10)
[2021-06-28] MEDS ORDERED: bisacodyl 10mg suppository rectal RC PRN (17:10)
[2021-06-28] MEDS ORDERED: potassium Cl 20 mEq SR tablet PO PRN ×2 (17:10)
[2021-06-28] MEDS ORDERED: magnesium Cl slow-release 64mg tablet PO PRN (17:10)
[2021-06-28] MEDS: normal saline 1000ml 1,000 ML IV SCH (17:10)
[2021-06-28] MEDS ORDERED: potassium CL 10mEq/100ml bag 100 ML IV PRN (17:10)
[2021-06-28] MEDS ORDERED: ondansetron/PF 4mg/2ml inj IV PRN (17:10)
[2021-06-28 17:52] LABS: ALANINE AMINOTRANSFERASE 38 U/L (12-78); ALBUMIN 4.3 G/DL (3.4-5.0); ALBUMIN/GLOBULIN RATIO 1.1 (1.1-1.5); ALKALINE PHOSPHATASE 76 IU/L (46-116); ANION GAP 11 (8-16); ASPARTATE AMINO TRANSFERASE 27 U/L (10-37); BILIRUBIN,TOTAL 0.3 MG/DL (0.1-1.0); BLOOD UREA NITROGEN 18 MG/DL (7-18); BUN/CREATININE RATIO 26.1 (6.6-38.0); CALCIUM 9.5 MG/DL (8.5-10.1); CHLORIDE 105 MMOL/L (99-107); CREATININE 0.69 MG/DL (0.40-0.90); GLUCOSE 138 MG/DL (70-104); MAGNESIUM 2.3 MG/DL (1.5-2.4); POTASSIUM 4.1 MMOL/L (3.5-5.1); SODIUM 138 MMOL/L (135-145); TOTAL CARBON DIOXIDE 21.9 MMOL/L (24-32); TOTAL PROTEIN 8.3 G/DL (6.4-8.2); eGFR 82 ML/MIN
[2021-06-28] MEDS ORDERED: dextrose 50%-water 50ml dispensing syringe IV PRN ×2 (17:55)
[2021-06-28] MEDS ORDERED: MESSAGE TO PHARMACY PO ONE (17:55)
[2021-06-28] MEDS ORDERED: glucagon, human recombinant 1mg kit SUBCUT PRN (17:55)
[2021-06-28] MEDS ORDERED: DEXTROSE 15 GM of carb/4 tabs (each vial/BOTTLE has 4 tablets) PO PRN ×2 (17:55)
[2021-06-28] MEDS ORDERED: insulin Lispro (HumaLOG) vial - multi-dose SQ SCH (17:55)
[2021-06-28] MEDS ORDERED: ibuprofen tablet 400 MG TABLET PO PRN (18:25)
[2021-06-28 19:08] LABS: BASOPHILS # (AUTO) 0.1 X10'3 (0-0.2); BASOPHILS % (AUTO) 0.6 % (0-1); EOSINOPHILS % (AUTO) 0.1 % (0-6); HEMATOCRIT 35.9 % (35.0-45.0); HEMOGLOBIN 12.1 g/dl (12.0-16.0); LYMPHOCYTES # (AUTO) 1.5 X10'3 (1.1-4.8); LYMPHOCYTES % (AUTO) 9.7 % (21-51); MEAN CORPUSCULAR HEMOGLOBIN 29.2 PG (27.0-31.0); MEAN CORPUSCULAR HGB CONC 33.8 g/dL (33.0-36.5); MEAN CORPUSCULAR VOLUME 86.4 FL (78-98); MONOCYTES % (AUTO) 6.3 % (2-12); NEUTROPHILS # (AUTO) 12.5 X10'3 (1.8-7.7); NEUTROPHILS % (AUTO) 83.3 % (42-75); PLATELET COUNT 285 X10'3 (140-440); RED BLOOD COUNT 4.16 X10'6 (4.20-5.60); RED CELL DISTRIBUTION WIDTH 14.2 % (11.5-14.5); WHITE BLOOD COUNT 15.1 X10'3 (4.5-11.0)
[2021-06-28] MEDS: K and/or MAG REPLACEMENT MC SCH (20:00)
[2021-06-28] MEDS: morphine 2 MG/ML inj. syringe IV PRN (20:23)
[2021-06-28] MEDS: docusate sod 100mg capsule PO SCH (20:36)
[2021-06-28] MEDS: famotidine 20mg tablet PO SCH (20:42)
[2021-06-28] MEDS ORDERED: temazepam 15mg capsule PO PRN (21:00)
[2021-06-28] MEDS ORDERED: insulin glargine (Lantus) pen - multi-dose SQ SCH (21:00)
[2021-06-28] MEDS: oxybutynin 5mg tablet PO SCH (21:00)
[2021-06-29] MEDS: morphine 2 MG/ML inj. syringe IV PRN (00:11)
[2021-06-29] MEDS ORDERED: oxybutynin 5mg tablet PO ONE (00:15)
[2021-06-29 02:47] LABS: BASOPHILS % (AUTO) 0.2 % (0-1); EOSINOPHILS % (AUTO) 0 % (0-6); HEMATOCRIT 33.1 % (35.0-45.0); HEMOGLOBIN 10.6 g/dl (12.0-16.0); LYMPHOCYTES # (AUTO) 1.7 X10'3 (1.1-4.8); LYMPHOCYTES % (AUTO) 14.2 % (21-51); MEAN CORPUSCULAR HEMOGLOBIN 28.5 PG (27.0-31.0); MEAN CORPUSCULAR VOLUME 88.8 FL (78-98); MEAN PLATELET VOLUME 7.6 FL (7.4-10.4); MONOCYTES # (AUTO) 1.5 X10'3 (0-0.9); MONOCYTES % (AUTO) 12.4 % (2-12); NEUTROPHILS # (AUTO) 8.7 X10'3 (1.8-7.7); NEUTROPHILS % (AUTO) 73.2 % (42-75); PLATELET COUNT 214 X10'3 (140-440); RED BLOOD COUNT 3.73 X10'6 (4.20-5.60); RED CELL DISTRIBUTION WIDTH 14.5 % (11.5-14.5); WHITE BLOOD COUNT 11.9 X10'3 (4.5-11.0)
[2021-06-29 03:10] VITALS: BP 128/63
[2021-06-29] MEDS: traMADol 50MG tablet PO PRN ×2 (03:21→13:37)
[2021-06-29] MEDS: normal saline 1000ml 1,000 ML IV SCH (03:40)
--- NOTE | 2021-06-29 04:21 | NUR ---
Received report from TANNER Jones. 0240: patient arrived to unit in no apparent distress, ALOx4. Belongings came up with patient.
[2021-06-29 06:00] VITALS: BP 116/49
--- NOTE | 2021-06-29 06:29 | NUR ---
Problems reprioritized. Patient report given, questions answered & plan of care reviewed with TANNER Pittman.
[2021-06-29 07:02] LABS: ALANINE AMINOTRANSFERASE 25 U/L (12-78); ALBUMIN 3.3 G/DL (3.4-5.0); ALKALINE PHOSPHATASE 60 IU/L (46-116); ANION GAP 9 (8-16); ASPARTATE AMINO TRANSFERASE 18 U/L (10-37); BILIRUBIN,TOTAL 0.3 MG/DL (0.1-1.0); BLOOD UREA NITROGEN 21 MG/DL (7-18); BUN/CREATININE RATIO 35.6 (6.6-38.0); CALCIUM 8.4 MG/DL (8.5-10.1); CHLORIDE 106 MMOL/L (99-107); CREATININE 0.59 MG/DL (0.40-0.90); GLUCOSE 120 MG/DL (70-104); MAGNESIUM 2.1 MG/DL (1.5-2.4); POTASSIUM 3.9 MMOL/L (3.5-5.1); SODIUM 137 MMOL/L (135-145); TOTAL CARBON DIOXIDE 22.1 MMOL/L (24-32); TOTAL PROTEIN 6.6 G/DL (6.4-8.2); eGFR > 90 ML/MIN
[2021-06-29] MEDS: famotidine 20mg tablet PO SCH ×2 (07:58→20:15)
[2021-06-29] MEDS: ferrous sulfate 325mg tablet PO SCH (07:58)
[2021-06-29] MEDS: multivitamins, therapeutics tablet PO SCH (07:58)
[2021-06-29] MEDS: oxybutynin 5mg tablet PO SCH ×3 (07:58→20:14)
[2021-06-29] MEDS: folic acid 1mg tablet PO SCH (07:58)
[2021-06-29] MEDS: lactobacillus rhamnosus 10,000 MMU CELLS/CAPSULE PO SCH (07:58)
[2021-06-29] MEDS: docusate sod 100mg capsule PO SCH ×2 (08:00→20:00)
[2021-06-29] MEDS ORDERED: non-formulary drug (Lactobacillus Acidophilus (Probiotic) 1 CAP) PO SCH (08:00)
[2021-06-29] MEDS ORDERED: enoxaparin 40mg/0.4ml syringe SUBCUT SCH (08:00)
[2021-06-29] MEDS: K and/or MAG REPLACEMENT MC SCH ×2 (08:00→20:00)
[2021-06-29] MEDS ORDERED: non-formulary drug (Multivitamin (Multi Vitamin Daily) 1 TAB) PO SCH (08:00)
[2021-06-29] MEDS: metFORMIN 500mg tablet PO SCH (08:40)
[2021-06-29] MEDS: ondansetron 4mg rapidly disintigrating tab PO PRN (10:03)
[2021-06-29 10:45] VITALS: BP 114/66
[2021-06-29] MEDS ORDERED: oxybutynin 5mg tablet PO SCH (13:57)
[2021-06-29 15:35] VITALS: BP 128/55
[2021-06-29 18:00] VITALS: BP 146/56
--- NOTE | 2021-06-29 18:15 | NUR ---
Problems reprioritized. Patient report given, questions answered & plan of care reviewed with TANNER Aburto.
[2021-06-29 22:00] VITALS: BP 117/64
[2021-06-30] MEDS: traMADol 50MG tablet PO PRN ×2 (00:50→05:33)
[2021-06-30] MEDS: normal saline 1000ml 1,000 ML IV SCH (02:30)
[2021-06-30 06:00] VITALS: BP 128/60
--- NOTE | 2021-06-30 06:37 | NUR ---
I agree with documentation , and report give to TANNER Ward by Jean Carlos RN student
--- NOTE | 2021-06-30 06:37 | NUR ---
Problems reprioritized. Patient report given, questions answered & plan of care reviewed with TANNER Ward.
--- NOTE | 2021-06-30 06:56 | NUR ---
Patient in room ORTHO 4012. I have received report from Lamonte HART and had the opportunity to ask questions and assume patient care.
[2021-06-30 07:26] LABS: BASOPHILS % (AUTO) 0.4 % (0-1); EOSINOPHILS # (AUTO) 0.1 X10'3 (0-0.9); EOSINOPHILS % (AUTO) 1.2 % (0-6); HEMATOCRIT 26.3 % (35.0-45.0); HEMOGLOBIN 8.9 g/dl (12.0-16.0); LYMPHOCYTES # (AUTO) 1.6 X10'3 (1.1-4.8); LYMPHOCYTES % (AUTO) 22.6 % (21-51); MEAN CORPUSCULAR HEMOGLOBIN 29.3 PG (27.0-31.0); MEAN CORPUSCULAR HGB CONC 33.6 g/dL (33.0-36.5); MEAN PLATELET VOLUME 7.5 FL (7.4-10.4); MONOCYTES # (AUTO) 0.9 X10'3 (0-0.9); NEUTROPHILS # (AUTO) 4.5 X10'3 (1.8-7.7); NEUTROPHILS % (AUTO) 62.8 % (42-75); PLATELET COUNT 205 X10'3 (140-440); RED BLOOD COUNT 3.03 X10'6 (4.20-5.60); RED CELL DISTRIBUTION WIDTH 14.3 % (11.5-14.5); WHITE BLOOD COUNT 7.1 X10'3 (4.5-11.0)
[2021-06-30] MEDS: K and/or MAG REPLACEMENT MC SCH (08:00)
[2021-06-30] MEDS: docusate sod 100mg capsule PO SCH (08:00)
[2021-06-30] MEDS: metFORMIN 500mg tablet PO SCH (08:00)
[2021-06-30] MEDS: ondansetron 4mg rapidly disintigrating tab PO PRN (09:12)
[2021-06-30] MEDS: lactobacillus rhamnosus 10,000 MMU CELLS/CAPSULE PO SCH (09:18)
[2021-06-30] MEDS: folic acid 1mg tablet PO SCH (09:18)
[2021-06-30] MEDS: ferrous sulfate 325mg tablet PO SCH (09:18)
[2021-06-30] MEDS: famotidine 20mg tablet PO SCH (09:18)
[2021-06-30] MEDS: multivitamins, therapeutics tablet PO SCH (09:18)
[2021-06-30] MEDS: oxybutynin 5mg tablet PO SCH (09:19)
[2021-06-30 10:00] VITALS: BP 101/83
[2021-06-30 11:32] LABS: ALANINE AMINOTRANSFERASE 24 U/L (12-78); ALBUMIN 3.3 G/DL (3.4-5.0); ALBUMIN/GLOBULIN RATIO 0.8 (1.1-1.5); ALKALINE PHOSPHATASE 57 IU/L (46-116); ANION GAP 11 (8-16); ASPARTATE AMINO TRANSFERASE 18 U/L (10-37); BILIRUBIN,TOTAL 0.3 MG/DL (0.1-1.0); BLOOD UREA NITROGEN 16 MG/DL (7-18); BUN/CREATININE RATIO 28.1 (6.6-38.0); CALCIUM 8.4 MG/DL (8.5-10.1); CHLORIDE 103 MMOL/L (99-107); CREATININE 0.57 MG/DL (0.40-0.90); GLUCOSE 93 MG/DL (70-104); MAGNESIUM 2.2 MG/DL (1.5-2.4); POTASSIUM 3.9 MMOL/L (3.5-5.1); SODIUM 137 MMOL/L (135-145); TOTAL CARBON DIOXIDE 22.8 MMOL/L (24-32); TOTAL PROTEIN 7.2 G/DL (6.4-8.2); eGFR > 90 ML/MIN
[2021-06-30 14:00] VITALS: BP 115/47
== END 2021-06-30 17:45 | DRG 563 ==
LOC: ER 12:33 → ED HOLD 17:16 → ORTHO 4S 06-29 02:40
PROVIDERS: ADMIT Family Medicine; ATTEND Family Medicine
PROC: 2W3FX1Z Immobilization of Left Hand using Splint (ICD-10-PCS; principal; 2021-06-28)
DX: S52.592A Other fractures of lower end of left radius, initial encounter for closed fracture (principal); S32.592A Other specified fracture of left pubis, initial encounter for closed fracture; N32.81 Overactive bladder; E11.9 Type 2 diabetes mellitus without complications; Z20.822 Contact with and (suspected) exposure to COVID-19; W01.0XXA Fall on same level from slipping, tripping and stumbling without subsequent striking against object, initial encounter; M85.88 Other specified disorders of bone density and structure, other site; K80.20 Calculus of gallbladder without cholecystitis without obstruction; M81.0 Age-related osteoporosis without current pathological fracture; Z79.84 Long term (current) use of oral hypoglycemic drugs; Z90.49 Acquired absence of other specified parts of digestive tract; Z93.3 Colostomy status; Y93.89 Activity, other specified; Y92.096 Garden or yard of other non-institutional residence as the place of occurrence of the external cause; Y99.8 Other external cause status; Z88.0 Allergy status to penicillin; Z88.5 Allergy status to narcotic agent
CPT/HCPCS: 36415; 72192; 73110; 73502; 80053; 82948; 83036; 83735; 85025; 87081; 87635; 96372; 96374; 96376; 97110; 97116; 97161; 97530; 99285; G0378; J1650; J1815; J2270; J2405; J2765; J7030

== ENCOUNTER 2023-06-14 10:13 | Emergency (ER) | payer MEDICARE ==
[~2023-06-14] VITALS: Ht 162.6 cm; Wt 57.7 kg
[~2023-06-14 10:13] MED LIST changes: +ALEN70TA80 PO; -BALS750C PO; +CHOL100017 PO; +FERR-39 PO; -FERR325T29 PO; +FOLI1TAB27 PO; +MULT-1085 PO; +OXYB5TAB21 PO; -PRE5T PO
[2023-06-14 10:16] VITALS: TEMP 97.3
[2023-06-14 14:03] VITALS: BP 160/69; PULSE 73; RESP 16; O2SAT 99
== END 2023-06-14 14:16 | disposition home or self-care (01) ==
LOC: ER 10:14
DX: G11.9 Hereditary ataxia, unspecified (principal); Z88.6 Allergy status to analgesic agent; Z88.0 Allergy status to penicillin
CPT/HCPCS: 70450; 70551; 99285